=== PATIENT | male | born 1985 | race African-American/Black ===

== ENCOUNTER 2018-10-09 01:25 | Emergency (ER) | payer MEDICAID ==
[~2018-10-09] VITALS: Ht 180.3 cm; Wt 70.0 kg
[2018-10-09] MEDS ORDERED: HYDROcodone/APAP 5/325 TABLET ONE (02:20)
[2018-10-09] MEDS ORDERED: HYDROcodone/APAP 5/325 TABLET PO ONE (02:30)
[2018-10-09 03:44] VITALS: BP 127/71
== END 2018-10-09 03:46 | disposition home or self-care (01) ==
LOC: ED 02:28
DX: L04.0 Acute lymphadenitis of face, head and neck (principal)
CPT/HCPCS: 76536; 99284

== ENCOUNTER 2018-10-28 02:25 | Emergency (ER) | payer MEDICAID ==
[~2018-10-28] VITALS: Ht 180.3 cm; Wt 69.0 kg
[2018-10-28] MEDS ORDERED: LIDOCAINE-MPF 1%, 2ML ONE (02:42)
--- NOTE | 2018-10-28 02:54 | NUR ---
bib by ashleigh for 2 in lac to right palm of hand, pt cut hand on knife while doing dishes at midnight today, no active bleeding noted. monitors applied, siderails up x2, call light within reach.
[2018-10-28] MEDS ORDERED: LIDOCAINE-MPF 1%, 2ML INFIL ONE (03:00)
--- NOTE | 2018-10-28 03:08 | NUR ---
feed in worker at pt's bedside for right hand wound irrigation
[2018-10-28] MEDS ORDERED: ACETAMINOPHEN 325 MG TABLET ONE (03:10)
--- NOTE | 2018-10-28 03:15 | NUR ---
pt medicated per dec, heating and cooling technician at bedside
[2018-10-28] MEDS ORDERED: LIDOCAINE-MPF 1%, 5ML ONE (03:20)
[2018-10-28] MEDS ORDERED: BACITRACIN ZINC OINT 500U/GM, 0.9 GM ONE (03:27)
[2018-10-28] MEDS ORDERED: ACETAMINOPHEN 325 MG TABLET PO ONE (03:30)
[2018-10-28 03:36] VITALS: BP 101/54
== END 2018-10-28 03:49 | disposition home or self-care (01) ==
LOC: ED 02:50
DX: S61.411A Laceration without foreign body of right hand, initial encounter (principal); J45.909 Unspecified asthma, uncomplicated; Z72.9 Problem related to lifestyle, unspecified; W26.0XXA Contact with knife, initial encounter; Y93.89 Activity, other specified; Y92.090 Kitchen in other non-institutional residence as the place of occurrence of the external cause; Y99.8 Other external cause status
CPT/HCPCS: 12031; 12032; 12041; 99284

== ENCOUNTER 2019-06-28 16:25 | Inpatient (IN) | payer MEDICAID, OTHER ==
[~2019-06-28] VITALS: Ht 180.3 cm; Wt 76.8 kg
--- NOTE | 2019-06-28 16:37 | NUR ---
PATIENT PRESENTS TO ED TODAY FOR CHILLS AND BACK PAIN AFTER SHOWER TODAY. HX SICKLE CELL ANEMIA. FRIEND AT BEDSIDE, MD AT BEDSIDE, AWAITING ORDERS, CALL LIGHT WITHIN REACH.
[2019-06-28] MEDS ORDERED: FOLI20CA PO (16:41)
[2019-06-28] MEDS ORDERED: SODIUM CHLORIDE 0.9% 1,000ML IVBOLUS ONE (17:00)
[2019-06-28] MEDS ORDERED: ONDANSETRON 2MG/ML, 2ML IVPush ONE (17:00)
[2019-06-28] MEDS ORDERED: SODIUM CHLORIDE FLUSH 10ML SYR IVF ONE (17:00)
[2019-06-28] MEDS ORDERED: ONDANSETRON 2MG/ML, 2ML ONE (17:11)
[2019-06-28] MEDS ORDERED: HYDROmorphone 1 MG/ML, 1ML VIAL ONE (17:11)
[2019-06-28] MEDS: HYDROmorphone 2 MG/ML, 1ML IVPush PRN ×3 (17:13→23:38)
[2019-06-28 17:18] LABS: ALANINE AMINOTRANSFERASE 21 U/L (12-78); ALBUMIN 3.8 g/dL (3.4-5.0); ANION GAP 6 mmol/L (5-15); CALCIUM 8.1 mg/dL (8.5-10.1); CHLORIDE 110 mmol/L (98-107); CREATININE 0.97 mg/dL (0.7-1.3)
--- NOTE | 2019-06-28 17:18 | NUR ---
PATIENT 84%-90% RA POST PAIN MEDICATION, SUPPLEMENTAL O2 APPLIED, NOW 93% 2L NC. PATIENT SITTING IN GURNEY WATCHING TV, AWAITING RESULTS.
[2019-06-28 17:20] LABS: ALKALINE PHOSPHATASE 90 U/L (45-117); BILIRUBIN,TOTAL 4.7 mg/dL (0.2-1.0); TOTAL PROTEIN 7.2 g/dL (6.4-8.2)
[2019-06-28 17:24] LABS: MEAN CORPUSCULAR HEMOGLOBIN 37.3 pg (27.5-34.5); MEAN CORPUSCULAR HGB CONC 33.7 g/dL (33.2-36.2); MEAN CORPUSCULAR VOLUME 110.8 fL (81-97); MEAN PLATELET VOLUME 7.8 fL (7.4-10.4); PLATELET COUNT 499 x10^3/uL (130-400); RED BLOOD COUNT 2.37 x10^6/uL (4.38-5.82); RED CELL DISTRIBUTION WIDTH 22.1 % (9.4-14.8)
[2019-06-28 17:34] LABS: MICROSCOPIC AUTO
[2019-06-28 17:35] LABS: CULTURE INDICATED? YES
[2019-06-28 17:44] LABS: MD YES
[2019-06-28 17:46] LABS: BAND#(MANUAL) 1.01 x10^3/uL; BANDS%(MANUAL) 4 % (0-7); EOS% (MANUAL) 2 % (1-7); LYMPH#(MANUAL) 2.27 x10^3/uL (1-3.4); LYMPHS% (MANUAL) 9 % (22-44); MONOS#(MANUAL) 0.25 x10^3/uL (0.3-2.7); MONOS% (MANUAL) 1 % (2-9); MYELOCYTES# (MANUAL) 0.25 x10^3/uL (0-0); MYELOCYTES% (MANUAL) 1 % (0-0); NRBC % (MANUAL) 1 % (0-1); SEG#(MANUAL) 20.92 x10^3/uL (1.8-6.8); SEGS% (MANUAL) 83 % (42-75)
[2019-06-28 17:52] LABS: ANISOCYTOSIS 2+; SICKLE CELLS 2+
[2019-06-28 17:53] LABS: OVALOCYTES 1+; POLYCHROMASIA 2+; SPHEROCYTES 1+
[2019-06-28 17:54] LABS: TARGET CELLS 1+
[2019-06-28 17:56] LABS: <PLATELET ESTIMATE> INCREASED
[2019-06-28 17:57] LABS: LARGE PLATELETS 1+
--- NOTE | 2019-06-28 18:10 | NUR ---
IV INFILTRATED, NEW IV ESTABLISHED, IVF CONTINUED. VS UPDATED IN CHART, AWAITING LAB RESULTS. PATIENT SITTING IN [facility] WATCHING TV, NADN.
[2019-06-28] MEDS ORDERED: NALOXONE 1 MG/ML, 2ML ONE (18:31)
[2019-06-28 18:45] LABS: ABSOLUTE RETICS # 0.395 x10^6/uL (0.5-1.5); RETICULOCYTE COUNT % 16.56 % (0.5-1.5)
[2019-06-28 18:46] LABS: RED BLOOD COUNT 2.37 x10^6/uL (4.38-5.82)
--- NOTE | 2019-06-28 18:56 | NUR ---
NEW ORDERS FOR ADMIT, AWAITING BED ASSIGNMENT, REPORT TO LUIS DELAROSA. PATIENT LAYING IN GURNEY, A+OX4,RESP EVEN/UNLABORED.
[2019-06-28] MEDS ORDERED: ONDANSETRON 2MG/ML, 2ML IVPush PRN (19:00)
[2019-06-28] MEDS ORDERED: OXYcodone IR 5MG TABLET PO PRN (19:00)
--- NOTE | 2019-06-28 19:24 | NUR ---
TASK RN: REPORT TO LUIS KEITH. FLOOR READY FOR PT. TRANSPORT.
[2019-06-28] MEDS: SODIUM CHLORIDE 0.9% 1,000 ML IV SCH (20:50)
[2019-06-28] MEDS: ENOXAPARIN 40 MG/0.4 ML SQ SCH (20:50)
[2019-06-28] MEDS: PIPERACILLIN/TAZO/PMX 3.375GM 50 ML IV SCH (20:50)
[2019-06-29] MEDS: PIPERACILLIN/TAZO/PMX 3.375GM 50 ML IV SCH ×4 (02:21→22:17)
[2019-06-29] MEDS: SODIUM CHLORIDE 0.9% 1,000 ML IV SCH ×3 (02:22→22:15)
[2019-06-29] MEDS: HYDROmorphone 2 MG/ML, 1ML IVPush PRN ×4 (04:39→19:13)
[2019-06-29 05:17] LABS: MEAN CORPUSCULAR HEMOGLOBIN 36.6 pg (27.5-34.5); MEAN CORPUSCULAR HGB CONC 33.2 g/dL (33.2-36.2); MEAN CORPUSCULAR VOLUME 110.3 fL (81-97); MEAN PLATELET VOLUME 7.8 fL (7.4-10.4); PLATELET COUNT 435 x10^3/uL (130-400); RED BLOOD COUNT 2.15 x10^6/uL (4.38-5.82); RED CELL DISTRIBUTION WIDTH 20.9 % (9.4-14.8)
[2019-06-29 05:23] LABS: ALBUMIN 3.4 g/dL (3.4-5.0); CALCIUM 7.6 mg/dL (8.5-10.1); CHLORIDE 109 mmol/L (98-107)
[2019-06-29 05:24] VITALS: BP 115/61
[2019-06-29 05:29] LABS: ALANINE AMINOTRANSFERASE 26 U/L (12-78); ALKALINE PHOSPHATASE 85 U/L (45-117); ANION GAP 6 mmol/L (5-15); BILIRUBIN,TOTAL 4.2 mg/dL (0.2-1.0); CREATININE 1.03 mg/dL (0.7-1.3); TOTAL PROTEIN 6.2 g/dL (6.4-8.2)
[2019-06-29] MEDS ORDERED: ACETAMINOPHEN 325 MG TABLET PO PRN (05:30)
[2019-06-29 05:49] LABS: MD YES
[2019-06-29 05:53] LABS: BAND#(MANUAL) 9.07 x10^3/uL; BANDS%(MANUAL) 21 % (0-7); EOS% (MANUAL) 3 % (1-7); LYMPH#(MANUAL) 3.02 x10^3/uL (1-3.4); LYMPHS% (MANUAL) 7 % (22-44); MONOS#(MANUAL) 0.86 x10^3/uL (0.3-2.7); MONOS% (MANUAL) 2 % (2-9); NRBC % (MANUAL) 12 % (0-1); SEG#(MANUAL) 28.94 x10^3/uL (1.8-6.8); SEGS% (MANUAL) 67 % (42-75)
[2019-06-29 05:54] LABS: <PLATELET ESTIMATE> INCREASED; ANISOCYTOSIS 2+; OVALOCYTES 1+; POLYCHROMASIA 2+; SICKLE CELLS 2+; SPHEROCYTES 1+; TARGET CELLS 1+
[2019-06-29 06:01] LABS: GIANT PLATELETS 1+; LARGE PLATELETS 1+
[2019-06-29 06:21] VITALS: BP 113/67
[2019-06-29] MEDS ORDERED: IBUPROFEN 200 MG TABLET PO PRN (07:00)
[2019-06-29] MEDS: IBUPROFEN 200 MG TABLET PO PRN (07:11)
[2019-06-29] MEDS: FOLIC ACID 1 MG TABLET PO SCH (08:08)
[2019-06-29] MEDS: ACETAMINOPHEN 325 MG TABLET PO SCH ×3 (08:08→22:15)
[2019-06-29] MEDS ORDERED: FOLIC ACID PO SCH (09:00)
[2019-06-29] MEDS: OXYcodone IR 5MG TABLET PO PRN ×3 (10:37→22:15)
[2019-06-29 13:45] VITALS: BP 95/55
[2019-06-29 19:23] VITALS: BP_SYST 94; BP_DIAS 33; BP_DIAS 53
[2019-06-29] MEDS: ENOXAPARIN 40 MG/0.4 ML SQ SCH (22:15)
[2019-06-30] VITALS (8 sets, daily range): BP systolic 97–115; BP diastolic 52–69
[2019-06-30] MEDS: ACETAMINOPHEN 325 MG TABLET PO SCH ×4 (01:31→19:25)
[2019-06-30] MEDS: HYDROmorphone 2 MG/ML, 1ML IVPush PRN ×5 (01:31→22:48)
[2019-06-30] MEDS: PIPERACILLIN/TAZO/PMX 3.375GM 50 ML IV SCH ×4 (01:32→20:08)
[2019-06-30 06:29] LABS: ANION GAP 7 mmol/L (5-15); CALCIUM 8.1 mg/dL (8.5-10.1); CHLORIDE 109 mmol/L (98-107)
[2019-06-30 06:34] LABS: % IRON SATURATION 15 % (20-55); CREATININE 0.92 mg/dL (0.7-1.3); IRON LEVEL 26 mcg/dL (65-175); TOTAL IRON BINDING CAPACITY 172 mcg/dL (250-450)
[2019-06-30 07:41] LABS: MEAN CORPUSCULAR HEMOGLOBIN 37.5 pg (27.5-34.5); MEAN CORPUSCULAR HGB CONC 33.8 g/dL (33.2-36.2); MEAN PLATELET VOLUME 8.2 fL (7.4-10.4); PLATELET COUNT 371 x10^3/uL (130-400); RED BLOOD COUNT 1.61 x10^6/uL (4.38-5.82); RED CELL DISTRIBUTION WIDTH 20.9 % (9.4-14.8)
[2019-06-30 07:43] LABS: MD YES
[2019-06-30 07:45] LABS: ANISOCYTOSIS 2+; BAND#(MANUAL) 0.23 x10^3/uL; BANDS%(MANUAL) 1 % (0-7); EOS#(MANUAL) 0.68 x10^3/uL (0.0-0.4); EOS% (MANUAL) 3 % (1-7); LYMPH#(MANUAL) 2.74 x10^3/uL (1-3.4); LYMPHS% (MANUAL) 12 % (22-44); MONOS#(MANUAL) 0.68 x10^3/uL (0.3-2.7); MONOS% (MANUAL) 3 % (2-9); NRBC % (MANUAL) 1 % (0-1); SEG#(MANUAL) 18.47 x10^3/uL (1.8-6.8); SEGS% (MANUAL) 81 % (42-75)
[2019-06-30 07:46] LABS: <PLATELET ESTIMATE> ADEQUATE; OVALOCYTES 1+; POLYCHROMASIA 2+; SICKLE CELLS 2+; SPHEROCYTES 1+; TARGET CELLS 1+
[2019-06-30 07:47] LABS: <PLT MORPHOLOGY> NORMAL PLT MORPH
[2019-06-30] MEDS: FOLIC ACID 1 MG TABLET PO SCH (08:03)
[2019-06-30] MEDS: OXYcodone IR 5MG TABLET PO PRN ×2 (11:51→17:47)
[2019-06-30] MEDS: SODIUM CHLORIDE 0.9% 1,000 ML IV SCH (13:37)
[2019-06-30] MEDS: CALCIUM/VITAMIN D3 250-125 TABLET PO SCH (20:08)
[2019-06-30] MEDS: ENOXAPARIN 40 MG/0.4 ML SQ SCH (20:08)
[2019-06-30] MEDS: IBUPROFEN 200 MG TABLET PO PRN (20:08)
[2019-06-30] MEDS: NICOTINE 14MG/24 HR PATCH.TD24 TD SCH (21:58)
[2019-07-01] VITALS (7 sets, daily range): BP systolic 95–122; BP diastolic 65–79
[2019-07-01] MEDS: SODIUM CHLORIDE 0.9% 1,000 ML IV SCH ×2 (01:23→16:49)
[2019-07-01] MEDS: PIPERACILLIN/TAZO/PMX 3.375GM 50 ML IV SCH ×4 (01:23→20:34)
[2019-07-01] MEDS: ACETAMINOPHEN 325 MG TABLET PO SCH ×4 (01:23→20:34)
[2019-07-01 06:46] LABS: MEAN CORPUSCULAR HEMOGLOBIN 35.8 pg (27.5-34.5); MEAN CORPUSCULAR HGB CONC 33.5 g/dL (33.2-36.2); MEAN CORPUSCULAR VOLUME 106.9 fL (81-97); MEAN PLATELET VOLUME 8.1 fL (7.4-10.4); PLATELET COUNT 350 x10^3/uL (130-400); RED BLOOD COUNT 1.92 x10^6/uL (4.38-5.82); RED CELL DISTRIBUTION WIDTH 20.8 % (9.4-14.8)
[2019-07-01] MEDS: CALCIUM/VITAMIN D3 250-125 TABLET PO SCH ×2 (07:51→20:34)
[2019-07-01] MEDS: FOLIC ACID 1 MG TABLET PO SCH (07:51)
[2019-07-01 08:23] LABS: MD YES
[2019-07-01 08:24] LABS: EOS#(MANUAL) 1.51 x10^3/uL (0.0-0.4); EOS% (MANUAL) 11 % (1-7)
[2019-07-01 08:25] LABS: ANISOCYTOSIS 2+; LYMPH#(MANUAL) 2.74 x10^3/uL (1-3.4); LYMPHS% (MANUAL) 20 % (22-44); MONOS#(MANUAL) 0.69 x10^3/uL (0.3-2.7); MONOS% (MANUAL) 5 % (2-9); SEG#(MANUAL) 8.77 x10^3/uL (1.8-6.8); SEGS% (MANUAL) 64 % (42-75)
[2019-07-01 08:26] LABS: OVALOCYTES 1+; POLYCHROMASIA 2+; SICKLE CELLS 2+; SPHEROCYTES 1+; TARGET CELLS 1+
[2019-07-01 08:27] LABS: <PLATELET ESTIMATE> ADEQUATE; <PLT MORPHOLOGY> NORMAL PLT MORPH
[2019-07-01] MEDS: HYDROmorphone 2 MG/ML, 1ML IVPush PRN ×5 (08:28→23:58)
[2019-07-01] MEDS: OXYcodone IR 5MG TABLET PO PRN ×2 (09:56→15:49)
[2019-07-01] MEDS: IBUPROFEN 200 MG TABLET PO PRN (19:08)
[2019-07-01] MEDS: ENOXAPARIN 40 MG/0.4 ML SQ SCH (20:35)
[2019-07-01] MEDS: NICOTINE 14MG/24 HR PATCH.TD24 TD SCH (20:35)
[2019-07-02 00:54] VITALS: BP 108/73
[2019-07-02] MEDS: ACETAMINOPHEN 325 MG TABLET PO SCH ×4 (01:36→22:25)
[2019-07-02] MEDS: PIPERACILLIN/TAZO/PMX 3.375GM 50 ML IV SCH ×4 (02:45→22:24)
[2019-07-02] MEDS: SODIUM CHLORIDE 0.9% 1,000 ML IV SCH ×3 (02:45→23:14)
[2019-07-02] MEDS: OXYcodone IR 5MG TABLET PO PRN ×4 (03:33→23:14)
[2019-07-02 05:01] LABS: MEAN CORPUSCULAR HEMOGLOBIN 35.1 pg (27.5-34.5); MEAN CORPUSCULAR HGB CONC 33.8 g/dL (33.2-36.2); MEAN CORPUSCULAR VOLUME 103.9 fL (81-97); PLATELET COUNT 450 x10^3/uL (130-400); RED BLOOD COUNT 2.24 x10^6/uL (4.38-5.82); RED CELL DISTRIBUTION WIDTH 20.4 % (9.4-14.8)
[2019-07-02 05:44] LABS: MD YES
[2019-07-02 05:46] LABS: BASOS#(MANUAL) 0.14 x10^3/uL (0-0.1); BASOS% (MANUAL) 1 % (0-1); EOS#(MANUAL) 1.63 x10^3/uL (0.0-0.4); EOS% (MANUAL) 12 % (1-7); LYMPH#(MANUAL) 2.72 x10^3/uL (1-3.4); LYMPHS% (MANUAL) 20 % (22-44); MONOS#(MANUAL) 1.22 x10^3/uL (0.3-2.7); MONOS% (MANUAL) 9 % (2-9); NRBC % (MANUAL) 8 % (0-1); SEG#(MANUAL) 7.89 x10^3/uL (1.8-6.8); SEGS% (MANUAL) 58 % (42-75)
[2019-07-02 05:47] LABS: ANISOCYTOSIS 2+; POLYCHROMASIA 2+; TARGET CELLS 1+
[2019-07-02 05:49] LABS: OVALOCYTES 1+; SICKLE CELLS 2+
[2019-07-02 05:50] LABS: <PLATELET ESTIMATE> INCREASED; <PLT MORPHOLOGY> NORMAL PLT MORPH; SPHEROCYTES 1+
[2019-07-02 08:52] VITALS: BP 123/77
[2019-07-02] MEDS: CALCIUM/VITAMIN D3 250-125 TABLET PO SCH ×2 (10:25→20:48)
[2019-07-02] MEDS: FOLIC ACID 1 MG TABLET PO SCH (10:26)
[2019-07-02] MEDS: FERROUS SULFATE 325 MG TABLET PO SCH (10:26)
[2019-07-02 13:50] VITALS: BP 124/81
[2019-07-02 20:28] VITALS: BP 123/72
[2019-07-02] MEDS: NICOTINE 14MG/24 HR PATCH.TD24 TD SCH (20:48)
[2019-07-02] MEDS: ENOXAPARIN 40 MG/0.4 ML SQ SCH (20:48)
[2019-07-03 00:33] VITALS: BP 129/80
[2019-07-03] MEDS: OXYcodone IR 5MG TABLET PO PRN ×5 (03:28→20:57)
[2019-07-03] MEDS: ACETAMINOPHEN 325 MG TABLET PO SCH ×4 (04:32→22:30)
[2019-07-03] MEDS: PIPERACILLIN/TAZO/PMX 3.375GM 50 ML IV SCH ×2 (04:32→10:15)
[2019-07-03 05:43] LABS: MEAN CORPUSCULAR HEMOGLOBIN 35.1 pg (27.5-34.5); MEAN CORPUSCULAR HGB CONC 33.9 g/dL (33.2-36.2); MEAN CORPUSCULAR VOLUME 103.6 fL (81-97); MEAN PLATELET VOLUME 8.1 fL (7.4-10.4); PLATELET COUNT 488 x10^3/uL (130-400); RED BLOOD COUNT 2.35 x10^6/uL (4.38-5.82); RED CELL DISTRIBUTION WIDTH 21.6 % (9.4-14.8)
[2019-07-03 06:19] LABS: MD YES
[2019-07-03 06:22] LABS: <PLATELET ESTIMATE> INCREASED; ANISOCYTOSIS 2+; BASOS#(MANUAL) 0.29 x10^3/uL (0-0.1); BASOS% (MANUAL) 2 % (0-1); EOS#(MANUAL) 2.15 x10^3/uL (0.0-0.4); EOS% (MANUAL) 15 % (1-7); LYMPH#(MANUAL) 3.43 x10^3/uL (1-3.4); LYMPHS% (MANUAL) 24 % (22-44); MONOS% (MANUAL) 7 % (2-9); NRBC % (MANUAL) 6 % (0-1); OVALOCYTES 1+; POLYCHROMASIA 2+; SEG#(MANUAL) 7.44 x10^3/uL (1.8-6.8); SEGS% (MANUAL) 52 % (42-75); SICKLE CELLS 2+; SPHEROCYTES 1+; TARGET CELLS 1+
[2019-07-03 06:23] LABS: <PLT MORPHOLOGY> NORMAL PLT MORPH
[2019-07-03 08:15] VITALS: BP 129/73
[2019-07-03] MEDS: CALCIUM/VITAMIN D3 250-125 TABLET PO SCH ×2 (08:28→20:57)
[2019-07-03] MEDS: FOLIC ACID 1 MG TABLET PO SCH (08:28)
[2019-07-03] MEDS: SODIUM CHLORIDE 0.9% 1,000 ML IV SCH ×2 (08:28→18:17)
[2019-07-03] MEDS: CEFTRIAXONE PMX 2GM/50ML 50 ML IV SCH (12:12)
[2019-07-03 15:10] VITALS: BP 131/77
[2019-07-03] MEDS: ENOXAPARIN 40 MG/0.4 ML SQ SCH (20:57)
[2019-07-03] MEDS: NICOTINE 14MG/24 HR PATCH.TD24 TD SCH (20:57)
[2019-07-03 21:26] VITALS: BP 128/78
[2019-07-04] MEDS: OXYcodone IR 5MG TABLET PO PRN ×4 (02:58→21:22)
[2019-07-04 03:00] VITALS: BP 132/80
[2019-07-04] MEDS: SODIUM CHLORIDE 0.9% 1,000 ML IV SCH ×2 (03:34→15:05)
[2019-07-04] MEDS: ACETAMINOPHEN 325 MG TABLET PO SCH ×4 (04:28→22:38)
[2019-07-04 08:29] LABS: MD YES; MEAN CORPUSCULAR HEMOGLOBIN 34.1 pg (27.5-34.5); MEAN CORPUSCULAR VOLUME 103.1 fL (81-97); MEAN PLATELET VOLUME 7.6 fL (7.4-10.4); PLATELET COUNT 468 x10^3/uL (130-400); RED BLOOD COUNT 2.27 x10^6/uL (4.38-5.82); RED CELL DISTRIBUTION WIDTH 22.1 % (9.4-14.8)
[2019-07-04 08:33] LABS: ANISOCYTOSIS 2+; BAND#(MANUAL) 0.23 x10^3/uL; BANDS%(MANUAL) 2 % (0-7); BASOS#(MANUAL) 0.35 x10^3/uL (0-0.1); BASOS% (MANUAL) 3 % (0-1); EOS#(MANUAL) 1.84 x10^3/uL (0.0-0.4); EOS% (MANUAL) 16 % (1-7); LYMPH#(MANUAL) 2.42 x10^3/uL (1-3.4); LYMPHS% (MANUAL) 21 % (22-44); MONOS#(MANUAL) 0.81 x10^3/uL (0.3-2.7); MONOS% (MANUAL) 7 % (2-9); NRBC % (MANUAL) 2 % (0-1); OVALOCYTES 1+; POLYCHROMASIA 2+; SEG#(MANUAL) 5.87 x10^3/uL (1.8-6.8); SEGS% (MANUAL) 51 % (42-75)
[2019-07-04 08:34] LABS: <PLATELET ESTIMATE> INCREASED; <PLT MORPHOLOGY> NORMAL PLT MORPH; SICKLE CELLS 2+; TARGET CELLS 1+
[2019-07-04] MEDS: CALCIUM/VITAMIN D3 250-125 TABLET PO SCH ×2 (09:34→21:22)
[2019-07-04] MEDS: FOLIC ACID 1 MG TABLET PO SCH (09:34)
[2019-07-04 09:40] VITALS: BP 130/80
[2019-07-04] MEDS: CEFTRIAXONE PMX 2GM/50ML 50 ML IV SCH (11:33)
[2019-07-04] MEDS: FERROUS SULFATE 325 MG TABLET PO SCH (11:33)
[2019-07-04 14:28] VITALS: BP 145/75
[2019-07-04 21:19] VITALS: BP 137/79
[2019-07-04] MEDS: NICOTINE 14MG/24 HR PATCH.TD24 TD SCH (21:23)
[2019-07-04] MEDS: ENOXAPARIN 40 MG/0.4 ML SQ SCH (21:23)
[2019-07-05 02:22] VITALS: BP 123/67
[2019-07-05] MEDS: OXYcodone IR 5MG TABLET PO PRN ×2 (02:25→21:16)
[2019-07-05] MEDS: ACETAMINOPHEN 325 MG TABLET PO SCH ×4 (04:21→22:52)
[2019-07-05] MEDS: SODIUM CHLORIDE 0.9% 1,000 ML IV SCH ×3 (04:24→21:28)
[2019-07-05 05:33] LABS: MEAN CORPUSCULAR HGB CONC 33.4 g/dL (33.2-36.2); MEAN CORPUSCULAR VOLUME 104.8 fL (81-97); MEAN PLATELET VOLUME 8.1 fL (7.4-10.4); PLATELET COUNT 483 x10^3/uL (130-400); RED CELL DISTRIBUTION WIDTH 20.8 % (9.4-14.8)
[2019-07-05 06:04] LABS: MD YES
[2019-07-05 06:06] LABS: ANISOCYTOSIS 2+; BASOS#(MANUAL) 0.14 x10^3/uL (0-0.1); BASOS% (MANUAL) 1 % (0-1); EOS#(MANUAL) 1.53 x10^3/uL (0.0-0.4); EOS% (MANUAL) 11 % (1-7); LYMPH#(MANUAL) 3.34 x10^3/uL (1-3.4); LYMPHS% (MANUAL) 24 % (22-44); METAMYELOCYTES# (MANUAL) 0.14 x10^3/uL (0-0); METAMYELOCYTES% (MANUAL) 1 % (0-1); MONOS#(MANUAL) 1.67 x10^3/uL (0.3-2.7); MONOS% (MANUAL) 12 % (2-9); NRBC % (MANUAL) 4 % (0-1); POLYCHROMASIA 2+; SEG#(MANUAL) 7.09 x10^3/uL (1.8-6.8); SEGS% (MANUAL) 51 % (42-75)
[2019-07-05 06:07] LABS: <PLATELET ESTIMATE> INCREASED; OVALOCYTES 1+; SICKLE CELLS 2+; TARGET CELLS 1+
[2019-07-05 06:10] LABS: LARGE PLATELETS 1+
[2019-07-05 06:12] LABS: SPHEROCYTES 1+
[2019-07-05 08:00] VITALS: BP 123/67
[2019-07-05] MEDS: CALCIUM/VITAMIN D3 250-125 TABLET PO SCH ×2 (09:29→21:16)
[2019-07-05] MEDS: FOLIC ACID 1 MG TABLET PO SCH (09:29)
[2019-07-05] MEDS: CEFTRIAXONE PMX 2GM/50ML 50 ML IV SCH (12:06)
[2019-07-05 14:26] VITALS: BP 137/79
[2019-07-05] MEDS: ENOXAPARIN 40 MG/0.4 ML SQ SCH (20:30)
[2019-07-05] MEDS: NICOTINE 14MG/24 HR PATCH.TD24 TD SCH (21:16)
[2019-07-05 21:25] VITALS: BP 145/87
[2019-07-06 01:02] VITALS: BP 139/82
[2019-07-06] MEDS: ACETAMINOPHEN 325 MG TABLET PO SCH (04:16)
[2019-07-06 05:26] LABS: MEAN CORPUSCULAR HEMOGLOBIN 34.5 pg (27.5-34.5); MEAN CORPUSCULAR HGB CONC 33.3 g/dL (33.2-36.2); MEAN CORPUSCULAR VOLUME 103.7 fL (81-97); MEAN PLATELET VOLUME 8.1 fL (7.4-10.4); PLATELET COUNT 583 x10^3/uL (130-400); RED BLOOD COUNT 2.49 x10^6/uL (4.38-5.82); RED CELL DISTRIBUTION WIDTH 21.2 % (9.4-14.8)
[2019-07-06 05:34] LABS: ANION GAP 5 mmol/L (5-15); CALCIUM 8.9 mg/dL (8.5-10.1); CHLORIDE 108 mmol/L (98-107); CREATININE 0.71 mg/dL (0.7-1.3)
[2019-07-06 05:55] LABS: MD YES
[2019-07-06 05:57] LABS: EOS#(MANUAL) 1.15 x10^3/uL (0.0-0.4); EOS% (MANUAL) 9 % (1-7); LYMPH#(MANUAL) 2.82 x10^3/uL (1-3.4); LYMPHS% (MANUAL) 22 % (22-44); MONOS#(MANUAL) 1.02 x10^3/uL (0.3-2.7); MONOS% (MANUAL) 8 % (2-9); NRBC % (MANUAL) 4 % (0-1); SEG#(MANUAL) 7.81 x10^3/uL (1.8-6.8); SEGS% (MANUAL) 61 % (42-75)
[2019-07-06 05:58] LABS: ANISOCYTOSIS 2+; OVALOCYTES 1+; POLYCHROMASIA 2+; SICKLE CELLS 2+; TARGET CELLS 1+
[2019-07-06 06:00] LABS: <PLATELET ESTIMATE> INCREASED; <PLT MORPHOLOGY> NORMAL PLT MORPH
[2019-07-06 08:00] VITALS: BP 145/87
[2019-07-06] MEDS: SODIUM CHLORIDE 0.9% 1,000 ML IV SCH (08:12)
[2019-07-06] MEDS ORDERED: NICO-486 TD (08:53)
[2019-07-06] MEDS ORDERED: FERR-51 PO (08:53)
[2019-07-06] MEDS ORDERED: CALC1TAB68 PO (08:53)
[2019-07-06] MEDS ORDERED: ACET325T26 PO (08:53)
[2019-07-06] MEDS ORDERED: CEFD300C37 PO (08:53)
[2019-07-06] MEDS ORDERED: CEFDINIR 300 MG CAPSULE PO SCH (09:00)
[2019-07-06] MEDS: FOLIC ACID 1 MG TABLET PO SCH (09:44)
[2019-07-06] MEDS: CALCIUM/VITAMIN D3 250-125 TABLET PO SCH (09:44)
[2019-07-06 10:21] VITALS: BP 145/87
== END 2019-07-06 11:35 | disposition home or self-care (01) | DRG 871 ==
LOC: ED 18:07 → EDIP 18:41 → 3N 19:56 → DCLOUNGE 07-06 11:16
PROVIDERS: ADMIT Family Medicine; ATTEND Family Medicine
PROC: 30233N1 Transfusion of Nonautologous Red Blood Cells into Peripheral Vein, Percutaneous Approach (ICD-10-PCS; principal; 2019-06-30)
DX: A41.51 Sepsis due to Escherichia coli [E. coli] (principal); D57.00 Hb-SS disease with crisis, unspecified; E86.0 Dehydration; D50.9 Iron deficiency anemia, unspecified; D53.9 Nutritional anemia, unspecified; E83.51 Hypocalcemia; F12.90 Cannabis use, unspecified, uncomplicated; F14.10 Cocaine abuse, uncomplicated; F17.210 Nicotine dependence, cigarettes, uncomplicated; G47.00 Insomnia, unspecified; Z88.5 Allergy status to narcotic agent; J45.909 Unspecified asthma, uncomplicated; K82.9 Disease of gallbladder, unspecified
CPT/HCPCS: 36415; 36430; 36600; 71045; 80048; 80053; 81001; 82274; 82330; 82607; 82803; 83540; 83550; 83605; 85025; 85045; 86850; 86900; 86902; 86923; 87040; 87077; 87086; 87186; 99285; G0378; J0696; J1170; J1650; J2405; J2543; J7030; P9016

== ENCOUNTER 2020-04-14 17:49 | Inpatient (IN) | payer MEDICAID ==
[~2020-04-14] VITALS: Ht 180.3 cm; Wt 71.9 kg
[~2020-04-14 17:49] MED LIST: ACET325T26 PO; CALC1TAB68 PO; CEFD300C37 PO; FERR-51 PO; FOLI20CA PO; NICO-486 TD
--- NOTE | 2020-04-14 18:15 | NUR ---
Pt states pain radiating from Left knee to Left hip since friday. Pt states pain is 10/10
[2020-04-14] MEDS ORDERED: SODIUM CHLORIDE 0.9% 1,000ML IVBOLUS ONE ×2 (19:00→20:00)
[2020-04-14] MEDS ORDERED: SODIUM CHLORIDE FLUSH 10ML SYR IVF ONE (19:00)
[2020-04-14] MEDS ORDERED: OXYcodone/APAP 7.5/325MG TABLET PO ONE (19:00)
[2020-04-14] MEDS ORDERED: OXYcodone/APAP 7.5/325MG TABLET ONE (19:02)
[2020-04-14 19:15] LABS: ALANINE AMINOTRANSFERASE 21 U/L (12-78); ALBUMIN 3.8 g/dL (3.4-5.0); ANION GAP 7 mmol/L (5-15); CALCIUM 8.2 mg/dL (8.5-10.1); CHLORIDE 111 mmol/L (98-107)
[2020-04-14 19:17] LABS: ALKALINE PHOSPHATASE 81 U/L (45-117); BILIRUBIN,TOTAL 3.7 mg/dL (0.2-1.0); CREATININE 0.81 mg/dL (0.7-1.3); TOTAL PROTEIN 6.8 g/dL (6.4-8.2)
[2020-04-14 19:23] LABS: MD YES; MEAN CORPUSCULAR HEMOGLOBIN 38.3 pg (27.5-34.5); MEAN CORPUSCULAR HGB CONC 34.4 g/dL (33.2-36.2); MEAN CORPUSCULAR VOLUME 111.2 fL (81-97); MEAN PLATELET VOLUME 7.6 fL (7.4-10.4); PLATELET COUNT 428 x10^3/uL (130-400); RED BLOOD COUNT 2.33 x10^6/uL (4.38-5.82); RED CELL DISTRIBUTION WIDTH 29.1 % (9.4-14.8)
[2020-04-14 19:47] LABS: EOS#(MANUAL) 2.31 x10^3/uL (0.0-0.4); EOS% (MANUAL) 14 % (1-7); LYMPH#(MANUAL) 3.47 x10^3/uL (1-3.4); LYMPHS% (MANUAL) 21 % (22-44); MONOS#(MANUAL) 0.33 x10^3/uL (0.3-2.7); MONOS% (MANUAL) 2 % (2-9); NRBC % (MANUAL) 12 % (0-1); SEGS% (MANUAL) 63 % (42-75)
[2020-04-14 19:49] LABS: ANISOCYTOSIS 2+; OVALOCYTES 1+; SPHEROCYTES 1+
[2020-04-14 19:50] LABS: POLYCHROMASIA 2+; SICKLE CELLS 1+; TARGET CELLS 1+
[2020-04-14 19:51] LABS: <PLATELET ESTIMATE> INCREASED; <PLT MORPHOLOGY> NORMAL PLT MORPH
[2020-04-14] MEDS ORDERED: HYDROmorphone 1 MG/ML, 1ML INJ IV ONE ×2 (20:00→21:00)
[2020-04-14 20:04] LABS: RED BLOOD COUNT 2.33 x10^6/uL (4.38-5.82)
[2020-04-14 20:05] LABS: ABSOLUTE RETICS # 0.42 x10^6/uL (0.5-1.5); RETICULOCYTE COUNT % 18.05 % (0.5-1.5)
[2020-04-14] MEDS ORDERED: HYDROmorphone 2 MG/ML, 1ML ONE (20:06)
--- NOTE | 2020-04-14 20:14 | NUR ---
Pt medicated for pain 2nd bolus infusing.
[2020-04-14 20:26] LABS: MICROSCOPIC NOT IND
--- NOTE | 2020-04-14 20:37 | NUR ---
Pt bothered by NC, provided with blow by O2 via NRB per request.
--- NOTE | 2020-04-14 20:52 | NUR ---
Report given to LUIS Matthews
--- NOTE | 2020-04-14 20:55 | NUR ---
REPORT RECEIVED FROM LUIS PEDRAZA. ASSUMED CARE OF PT.
[2020-04-14] MEDS ORDERED: ONDANSETRON 2MG/ML, 2ML IVPush ONE (21:00)
[2020-04-14] MEDS ORDERED: HYDROmorphone 1 MG/ML, 1ML INJ ONE (21:25)
[2020-04-14] MEDS ORDERED: ONDANSETRON 2MG/ML, 2ML ONE (21:26)
--- NOTE | 2020-04-14 21:30 | NUR ---
ADMITTING RAAD MCDERMOTT AT BEDSIDE FOR EVAL. PT CURRENTLY RESTING ON GURNEY EATING DINNER. SIGNIFICANT OTHER AT BEDSIDE. PT CHATTING PLEASANTLY AND LAUGHING WITH SET UP MECHANIC CROWN ASSEMBLY MACHINE AND S.O. AT BEDSIDE. NO ACUTE DISTRESS NOTED AT THIS TIME. PT ON CONT BP, CARDIAC AND O2 MONITORS. CALL LIGHT WITHIN REACH. WILL CONT TO MONITOR PT.
--- NOTE | 2020-04-14 21:51 | NUR ---
PT C/O CONT NAUSEA AND 9/10 PAIN. PT REMEDICATED ORDERED. PT ON CONT BP, CARDIAC AND SPO2 MONITORS. SIGNIFICANT OTHER AT BEDSIDE. CALL LIGHT WITHIN REACH. WILL CONT TO MONITOR PT.
--- NOTE | 2020-04-14 21:57 | NUR ---
REPORT TO LUIS LALA MED/SURG.
[2020-04-14] MEDS ORDERED: ACETAMINOPHEN 325 MG TABLET PO PRN (22:00)
[2020-04-14] MEDS ORDERED: BISACODYL 10 MG SUPP PR PRN (22:00)
[2020-04-14] MEDS ORDERED: KETOROLAC 30 MG/1 ML IV PRN (22:00)
[2020-04-14] MEDS ORDERED: POLYETHYLENE GLYCOL 17 GM PACKET PO PRN (22:00)
[2020-04-14] MEDS: SODIUM CHLORIDE 0.9% 1,000 ML IV SCH (22:00)
[2020-04-14 22:14] VITALS: BP 119/71
[2020-04-14] MEDS: NICOTINE 21 MG/24 HR PATCH.TD24 TD SCH (23:44)
[2020-04-15 01:16] VITALS: BP 126/78
[2020-04-15] MEDS: HYDROmorphone 2 MG/ML, 1ML IVPush PRN ×5 (01:27→18:02)
[2020-04-15] MEDS: ONDANSETRON ODT 4 MG PO PRN ×2 (01:27→09:00)
[2020-04-15 05:29] LABS: ALBUMIN 3.3 g/dL (3.4-5.0); ANION GAP 5 mmol/L (5-15); CALCIUM 7.8 mg/dL (8.5-10.1); CHLORIDE 112 mmol/L (98-107)
[2020-04-15 05:32] LABS: CREATININE 0.68 mg/dL (0.7-1.3)
[2020-04-15 05:33] LABS: ALANINE AMINOTRANSFERASE 19 U/L (12-78); ALKALINE PHOSPHATASE 64 U/L (45-117); TOTAL PROTEIN 6.2 g/dL (6.4-8.2)
[2020-04-15 06:32] LABS: MEAN CORPUSCULAR HEMOGLOBIN 37.8 pg (27.5-34.5); MEAN CORPUSCULAR HGB CONC 33.3 g/dL (33.2-36.2); MEAN CORPUSCULAR VOLUME 113.5 fL (81-97); MEAN PLATELET VOLUME 7.6 fL (7.4-10.4); PLATELET COUNT 419 x10^3/uL (130-400); RED BLOOD COUNT 2.16 x10^6/uL (4.38-5.82)
[2020-04-15 06:34] LABS: RED CELL DISTRIBUTION WIDTH 27.6 % (9.4-14.8)
[2020-04-15 06:35] LABS: MD YES
[2020-04-15 06:37] LABS: EOS#(MANUAL) 2.74 x10^3/uL (0.0-0.4); EOS% (MANUAL) 18 % (1-7); LYMPH#(MANUAL) 3.95 x10^3/uL (1-3.4); LYMPHS% (MANUAL) 26 % (22-44); MONOS#(MANUAL) 1.37 x10^3/uL (0.3-2.7); MONOS% (MANUAL) 9 % (2-9); NRBC % (MANUAL) 6 % (0-1); SEG#(MANUAL) 7.14 x10^3/uL (1.8-6.8); SEGS% (MANUAL) 47 % (42-75)
[2020-04-15 06:38] LABS: ANISOCYTOSIS 2+; POLYCHROMASIA 2+
[2020-04-15 06:39] LABS: OVALOCYTES 1+; SPHEROCYTES 1+
[2020-04-15 06:40] LABS: SICKLE CELLS 2+; TARGET CELLS 1+
[2020-04-15 06:41] LABS: <PLATELET ESTIMATE> INCREASED; <PLT MORPHOLOGY> NORMAL PLT MORPH
[2020-04-15 07:35] VITALS: BP 117/72
[2020-04-15] MEDS: SENNA/DOCUSATE TABLET PO SCH (08:42)
[2020-04-15] MEDS: SODIUM CHLORIDE 0.9% 1,000 ML IV SCH (08:42)
[2020-04-15 13:19] VITALS: BP 118/57
[2020-04-15] MEDS: NS + 20MEQ KCL 1,000 ML IV SCH (18:03)
[2020-04-15] MEDS: ENOXAPARIN 40 MG/0.4 ML SQ SCH (18:03)
[2020-04-15 21:38] VITALS: BP 109/68
[2020-04-15] MEDS: NICOTINE 21 MG/24 HR PATCH.TD24 TD SCH (22:28)
[2020-04-16] MEDS: HYDROmorphone 2 MG/ML, 1ML IVPush PRN ×5 (00:31→23:26)
[2020-04-16 00:34] VITALS: BP 107/46
[2020-04-16] MEDS: NS + 20MEQ KCL 1,000 ML IV SCH (04:25)
[2020-04-16 06:05] LABS: ALANINE AMINOTRANSFERASE 20 U/L (12-78); ALBUMIN 3.3 g/dL (3.4-5.0); ANION GAP 3 mmol/L (5-15); CALCIUM 7.8 mg/dL (8.5-10.1); CHLORIDE 111 mmol/L (98-107)
[2020-04-16 06:08] LABS: ALKALINE PHOSPHATASE 69 U/L (45-117); BILIRUBIN,TOTAL 2.6 mg/dL (0.2-1.0); CREATININE 0.86 mg/dL (0.7-1.3)
[2020-04-16 06:35] VITALS: BP 119/56
[2020-04-16 06:58] LABS: MEAN CORPUSCULAR HEMOGLOBIN 38.8 pg (27.5-34.5); MEAN CORPUSCULAR HGB CONC 34.5 g/dL (33.2-36.2); MEAN CORPUSCULAR VOLUME 112.7 fL (81-97); MEAN PLATELET VOLUME 7.5 fL (7.4-10.4); PLATELET COUNT 381 x10^3/uL (130-400); RED BLOOD COUNT 2.03 x10^6/uL (4.38-5.82)
[2020-04-16 07:02] LABS: RED CELL DISTRIBUTION WIDTH 25.3 % (9.4-14.8)
[2020-04-16 07:03] LABS: MD YES
[2020-04-16 07:05] LABS: ANISOCYTOSIS 2+; EOS#(MANUAL) 1.52 x10^3/uL (0.0-0.4); EOS% (MANUAL) 16 % (1-7); LYMPH#(MANUAL) 2.85 x10^3/uL (1-3.4); LYMPHS% (MANUAL) 30 % (22-44); MONOS#(MANUAL) 0.29 x10^3/uL (0.3-2.7); MONOS% (MANUAL) 3 % (2-9); NRBC % (MANUAL) 13 % (0-1); SEG#(MANUAL) 4.85 x10^3/uL (1.8-6.8); SEGS% (MANUAL) 51 % (42-75)
[2020-04-16 07:07] LABS: <PLATELET ESTIMATE> ADEQUATE; <PLT MORPHOLOGY> NORMAL PLT MORPH; OVALOCYTES 1+; POLYCHROMASIA 1+; SPHEROCYTES 1+; TARGET CELLS 1+; TEAR DROPS 2+
[2020-04-16] MEDS: SENNA/DOCUSATE TABLET PO SCH (08:40)
[2020-04-16] MEDS ORDERED: HYDROcodone/APAP 5/325 TABLET PO PRN (09:00)
[2020-04-16 13:47] VITALS: BP 112/70
[2020-04-16] MEDS: ENOXAPARIN 40 MG/0.4 ML SQ SCH (15:19)
[2020-04-16 19:44] VITALS: BP 131/66
[2020-04-16] MEDS: NICOTINE 21 MG/24 HR PATCH.TD24 TD SCH (21:15)
[2020-04-17] VITALS (9 sets, daily range): BP systolic 104–127; BP diastolic 54–76
[2020-04-17] MEDS: HYDROmorphone 2 MG/ML, 1ML IVPush PRN ×6 (05:10→23:30)
[2020-04-17 06:04] LABS: ALBUMIN 3.4 g/dL (3.4-5.0); CALCIUM 8.1 mg/dL (8.5-10.1)
[2020-04-17 06:10] LABS: ALANINE AMINOTRANSFERASE 19 U/L (12-78); ALKALINE PHOSPHATASE 65 U/L (45-117); BILIRUBIN,TOTAL 2.5 mg/dL (0.2-1.0); CREATININE 0.76 mg/dL (0.7-1.3); TOTAL PROTEIN 6.3 g/dL (6.4-8.2)
[2020-04-17 06:23] LABS: ANION GAP 9 mmol/L (5-15); CHLORIDE 109 mmol/L (98-107)
[2020-04-17 06:26] LABS: RED BLOOD COUNT 1.88 x10^6/uL (4.38-5.82)
[2020-04-17 06:27] LABS: MD YES; MEAN CORPUSCULAR HEMOGLOBIN 37.8 pg (27.5-34.5); MEAN CORPUSCULAR HGB CONC 34.8 g/dL (33.2-36.2); MEAN CORPUSCULAR VOLUME 108.4 fL (81-97); MEAN PLATELET VOLUME 7.6 fL (7.4-10.4); PLATELET COUNT 364 x10^3/uL (130-400); RED CELL DISTRIBUTION WIDTH 24.8 % (9.4-14.8)
[2020-04-17 06:29] LABS: <PLATELET ESTIMATE> ADEQUATE; <PLT MORPHOLOGY> NORMAL PLT MORPH; ANISOCYTOSIS 2+; BASOS#(MANUAL) 0.11 x10^3/uL (0-0.1); BASOS% (MANUAL) 1 % (0-1); EOS#(MANUAL) 1.46 x10^3/uL (0.0-0.4); EOS% (MANUAL) 13 % (1-7); LYMPH#(MANUAL) 1.79 x10^3/uL (1-3.4); LYMPHS% (MANUAL) 16 % (22-44); MONOS#(MANUAL) 0.67 x10^3/uL (0.3-2.7); MONOS% (MANUAL) 6 % (2-9); NRBC % (MANUAL) 3 % (0-1); POLYCHROMASIA 1+; SEG#(MANUAL) 7.17 x10^3/uL (1.8-6.8); SEGS% (MANUAL) 64 % (42-75); SICKLE CELLS 2+; TARGET CELLS 1+; TEAR DROPS 1+
[2020-04-17] MEDS: SENNA/DOCUSATE TABLET PO SCH (08:22)
[2020-04-17] MEDS: ENOXAPARIN 40 MG/0.4 ML SQ SCH (15:54)
[2020-04-17] MEDS: NICOTINE 21 MG/24 HR PATCH.TD24 TD SCH (21:10)
[2020-04-18 01:18] VITALS: BP 130/76
[2020-04-18] MEDS: HYDROmorphone 2 MG/ML, 1ML IVPush PRN ×5 (02:50→21:07)
[2020-04-18 05:27] LABS: ALBUMIN 3.5 g/dL (3.4-5.0); ANION GAP 6 mmol/L (5-15); CALCIUM 8.6 mg/dL (8.5-10.1); CHLORIDE 104 mmol/L (98-107)
[2020-04-18 05:32] LABS: ALANINE AMINOTRANSFERASE 24 U/L (12-78); ALKALINE PHOSPHATASE 80 U/L (45-117); TOTAL PROTEIN 6.8 g/dL (6.4-8.2)
[2020-04-18 05:59] LABS: MD YES; MEAN CORPUSCULAR HGB CONC 34.5 g/dL (33.2-36.2); MEAN CORPUSCULAR VOLUME 104.4 fL (81-97); MEAN PLATELET VOLUME 7.4 fL (7.4-10.4); PLATELET COUNT 433 x10^3/uL (130-400); RED BLOOD COUNT 2.25 x10^6/uL (4.38-5.82)
[2020-04-18 06:06] LABS: <PLATELET ESTIMATE> INCREASED; <PLT MORPHOLOGY> NORMAL PLT MORPH; ANISOCYTOSIS 2+; EOS% (MANUAL) 16 % (1-7); LYMPHS% (MANUAL) 19 % (22-44); MONOS% (MANUAL) 7 % (2-9); NRBC % (MANUAL) 1 % (0-1); POLYCHROMASIA 1+; SEGS% (MANUAL) 58 % (42-75); SICKLE CELLS 2+; TARGET CELLS 1+; TEAR DROPS 1+
[2020-04-18 06:09] LABS: HOWELL-JOLLY BODIES 1+
[2020-04-18 07:00] VITALS: BP 126/73
[2020-04-18] MEDS: SENNA/DOCUSATE TABLET PO SCH (08:26)
[2020-04-18 13:37] VITALS: BP 123/76
[2020-04-18] MEDS: ENOXAPARIN 40 MG/0.4 ML SQ SCH (15:31)
[2020-04-18 19:26] VITALS: BP 127/72
[2020-04-18] MEDS: NICOTINE 21 MG/24 HR PATCH.TD24 TD SCH (21:07)
[2020-04-19] MEDS: HYDROmorphone 2 MG/ML, 1ML IVPush PRN ×5 (00:48→20:51)
[2020-04-19 01:12] VITALS: BP 114/64
[2020-04-19 08:32] VITALS: BP 119/76
[2020-04-19] MEDS: SENNA/DOCUSATE TABLET PO SCH (10:11)
[2020-04-19 10:19] LABS: SICKLE CELLS 2+
[2020-04-19 15:59] VITALS: BP 107/67
[2020-04-19] MEDS ORDERED: OMNIPAQUE 350 MG/ML, 75ML BOTTLE ONE (17:25)
[2020-04-19] MEDS: ENOXAPARIN 40 MG/0.4 ML SQ SCH (18:43)
[2020-04-19 19:31] VITALS: BP 120/67
[2020-04-19] MEDS: NICOTINE 21 MG/24 HR PATCH.TD24 TD SCH (20:51)
[2020-04-20 00:22] VITALS: BP 129/75
[2020-04-20] MEDS: HYDROmorphone 2 MG/ML, 1ML IVPush PRN ×3 (00:24→10:30)
[2020-04-20] MEDS: ONDANSETRON ODT 4 MG PO PRN (01:28)
[2020-04-20 07:13] LABS: ANION GAP 5 mmol/L (5-15); CALCIUM 8.4 mg/dL (8.5-10.1); CHLORIDE 108 mmol/L (98-107); CREATININE 0.81 mg/dL (0.7-1.3)
[2020-04-20 07:14] LABS: ALANINE AMINOTRANSFERASE 23 U/L (12-78); ALBUMIN 3.3 g/dL (3.4-5.0)
[2020-04-20 07:16] LABS: ALKALINE PHOSPHATASE 82 U/L (45-117); TOTAL PROTEIN 6.7 g/dL (6.4-8.2)
[2020-04-20 07:25] VITALS: BP 117/63
[2020-04-20 07:36] LABS: MEAN CORPUSCULAR HGB CONC 34.9 g/dL (33.2-36.2); MEAN PLATELET VOLUME 7.2 fL (7.4-10.4); PLATELET COUNT 370 x10^3/uL (130-400); RED BLOOD COUNT 2.04 x10^6/uL (4.38-5.82); RED CELL DISTRIBUTION WIDTH 24.4 % (9.4-14.8)
[2020-04-20 07:37] LABS: MD YES
[2020-04-20 07:42] LABS: NRBC % (MANUAL) 1 % (0-1)
[2020-04-20 07:45] LABS: ANISOCYTOSIS 2+; BASOS% (MANUAL) 1 % (0-1); EOS#(MANUAL) 1.67 x10^3/uL (0.0-0.4); EOS% (MANUAL) 17 % (1-7); LYMPH#(MANUAL) 2.16 x10^3/uL (1-3.4); LYMPHS% (MANUAL) 22 % (22-44); MONOS#(MANUAL) 0.88 x10^3/uL (0.3-2.7); MONOS% (MANUAL) 9 % (2-9); POLYCHROMASIA 1+; SEGS% (MANUAL) 51 % (42-75)
[2020-04-20 07:46] LABS: OVALOCYTES 1+; SICKLE CELLS 2+; TARGET CELLS 1+; TEAR DROPS 1+
[2020-04-20 07:47] LABS: <PLATELET ESTIMATE> ADEQUATE; <PLT MORPHOLOGY> NORMAL PLT MORPH
[2020-04-20] MEDS: SENNA/DOCUSATE TABLET PO SCH (10:30)
[2020-04-20 13:38] VITALS: BP 120/64
[2020-04-20 17:18] LABS: HCT (SEDRATE) 23.1 % (39.2-51.8)
[2020-04-20] MEDS: HYDROcodone/APAP 5/325 TABLET PO PRN (17:41)
[2020-04-20 19:40] VITALS: BP 113/58
[2020-04-20] MEDS: ENOXAPARIN 40 MG/0.4 ML SQ SCH ×2 (21:00→21:42)
[2020-04-20] MEDS: NICOTINE 21 MG/24 HR PATCH.TD24 TD SCH (21:42)
[2020-04-21] MEDS: HYDROcodone/APAP 5/325 TABLET PO PRN (01:16)
[2020-04-21 02:00] VITALS: BP 136/81
[2020-04-21 05:32] LABS: MEAN CORPUSCULAR HEMOGLOBIN 34.8 pg (27.5-34.5); MEAN CORPUSCULAR HGB CONC 34.4 g/dL (33.2-36.2); MEAN CORPUSCULAR VOLUME 101.2 fL (81-97); MEAN PLATELET VOLUME 7.5 fL (7.4-10.4); PLATELET COUNT 502 x10^3/uL (130-400); RED BLOOD COUNT 2.23 x10^6/uL (4.38-5.82); RED CELL DISTRIBUTION WIDTH 25.4 % (9.4-14.8)
[2020-04-21 05:40] LABS: ALBUMIN 3.6 g/dL (3.4-5.0); ANION GAP 4 mmol/L (5-15); CALCIUM 8.7 mg/dL (8.5-10.1); CHLORIDE 104 mmol/L (98-107)
[2020-04-21 05:43] LABS: ALANINE AMINOTRANSFERASE 23 U/L (12-78); ALKALINE PHOSPHATASE 74 U/L (45-117); BILIRUBIN,TOTAL 2.8 mg/dL (0.2-1.0); TOTAL PROTEIN 6.8 g/dL (6.4-8.2)
[2020-04-21 06:00] LABS: MD YES
[2020-04-21 06:05] LABS: ANISOCYTOSIS 2+; EOS#(MANUAL) 2.43 x10^3/uL (0.0-0.4); EOS% (MANUAL) 19 % (1-7); LYMPH#(MANUAL) 3.58 x10^3/uL (1-3.4); LYMPHS% (MANUAL) 28 % (22-44); MONOS#(MANUAL) 0.64 x10^3/uL (0.3-2.7); MONOS% (MANUAL) 5 % (2-9); NRBC % (MANUAL) 1 % (0-1); SEG#(MANUAL) 6.14 x10^3/uL (1.8-6.8); SEGS% (MANUAL) 48 % (42-75)
[2020-04-21 06:06] LABS: <PLATELET ESTIMATE> INCREASED; LARGE PLATELETS 1+; POLYCHROMASIA 1+; SICKLE CELLS 2+; TARGET CELLS 1+; TEAR DROPS 1+
[2020-04-21 08:01] VITALS: BP 127/58
[2020-04-21 09:24] LABS: RED BLOOD COUNT 2.24 x10^6/uL (4.38-5.82)
[2020-04-21 09:25] LABS: RETICULOCYTE COUNT % 9.04 % (0.5-1.5)
[2020-04-21 09:26] LABS: ABSOLUTE RETICS # 0.202 x10^6/uL (0.5-1.5)
[2020-04-21] MEDS: SENNA/DOCUSATE TABLET PO SCH (09:33)
[2020-04-21] MEDS ORDERED: ACET325T26 PO (11:00)
[2020-04-21] MEDS ORDERED: NICO-487 TD (11:00)
--- NOTE | 2020-04-21 23:08 | NUR ---
chart accessed for records request from [facility].
== END 2020-04-21 13:30 | disposition home or self-care (01) | DRG 811 ==
LOC: ED 20:37 → INTOOBSV 21:18 → OBSVTOIN 21:18 → EDIP 21:18 → 3N 22:10 → DCLOUNGE 04-21 13:22
PROVIDERS: ADMIT Internal Medicine; ATTEND Hospitalist
PROC: 30233N1 Transfusion of Nonautologous Red Blood Cells into Peripheral Vein, Percutaneous Approach (ICD-10-PCS; principal; 2020-04-14)
DX: D57.00 Hb-SS disease with crisis, unspecified (principal); J96.01 Acute respiratory failure with hypoxia; J98.11 Atelectasis; F14.10 Cocaine abuse, uncomplicated; F17.200 Nicotine dependence, unspecified, uncomplicated; F17.210 Nicotine dependence, cigarettes, uncomplicated; D72.829 Elevated white blood cell count, unspecified; D64.9 Anemia, unspecified; D47.3 Essential (hemorrhagic) thrombocythemia; E80.6 Other disorders of bilirubin metabolism; F19.10 Other psychoactive substance abuse, uncomplicated; E11.9 Type 2 diabetes mellitus without complications; Z88.5 Allergy status to narcotic agent; Z90.89 Acquired absence of other organs
CPT/HCPCS: 36415; 71045; 71046; 71275; 80053; 81003; 82607; 83615; 84145; 85025; 85045; 85651; 86850; 86900; 86902; 86923; 96361; 96374; 96375; 96376; G0378; J1170; J1650; J1885; J2405; J3480; Q0162; Q9967; J7030; P9016

== ENCOUNTER 2020-06-02 02:49 | Emergency (ER) | payer MEDICAID ==
[~2020-06-02] VITALS: Ht 180.3 cm; Wt 72.2 kg
[~2020-06-02 02:49] MED LIST changes: +NICO-487 TD
[2020-06-02 02:51] VITALS: BP 121/62
--- NOTE | 2020-06-02 03:08 | NUR ---
PT TO ED WITH BILATERAL ABCESSES IN ARMPIT APPX 1/2IN DIAMETER. PT REPORTS INITIALLY NOTICING THEM APPX 4 DAYS AGO, CHANGED DEODORANT X5 DAYS AGO. DENIES ANY OTHER MEDICAL C/O AT THIS TIME. PT PLACED ON SPOX2 MONITORING, CALL LIGHT WITHIN REACH, ALL SAFETY MEASURES IN PLACE.
[2020-06-02] MEDS ORDERED: CEPHALEXIN 500 MG CAPSULE PO ONE (03:30)
[2020-06-02] MEDS ORDERED: SULFAMETH./TRIMETHOPRIM DS 800MG/160MG TABLET PO ONE (03:30)
[2020-06-02] MEDS ORDERED: SULFAMETH./TRIMETHOPRIM DS 800MG/160MG TABLET ONE (03:31)
[2020-06-02] MEDS ORDERED: CEPHALEXIN 500 MG CAPSULE ONE (03:31)
== END 2020-06-02 03:41 | disposition home or self-care (01) ==
LOC: ED 03:29
DX: L73.9 Follicular disorder, unspecified (principal); F17.200 Nicotine dependence, unspecified, uncomplicated; J45.909 Unspecified asthma, uncomplicated; I10 Essential (primary) hypertension; E11.9 Type 2 diabetes mellitus without complications
CPT/HCPCS: 99283

== ENCOUNTER 2020-08-26 12:03 | Inpatient (IN) | payer MEDICAID, OTHER ==
[~2020-08-26] VITALS: Ht 180.3 cm; Wt 71.3 kg
[2020-08-26] MEDS ORDERED: ONDANSETRON 2MG/ML, 2ML IVPush ONE (12:30)
[2020-08-26] MEDS ORDERED: HYDROmorphone 1 MG/ML, 1ML INJ IV ONE (12:30)
[2020-08-26] MEDS ORDERED: SODIUM CHLORIDE 0.9% 1,000ML IVBOLUS ONE ×2 (12:30→13:30)
[2020-08-26 12:39] LABS: ABSOLUTE RETICS # 0.471 x10^6/uL (0.5-1.5); MEAN CORPUSCULAR HEMOGLOBIN 36.3 pg (27.5-34.5); MEAN CORPUSCULAR HGB CONC 34.7 g/dL (33.2-36.2); MEAN PLATELET VOLUME 7.2 fL (7.4-10.4); PLATELET COUNT 489 x10^3/uL (130-400); RED BLOOD COUNT 2.45 x10^6/uL (4.38-5.82); RETICULOCYTE COUNT % 19.22 % (0.5-1.5)
[2020-08-26 12:48] LABS: INTERNATIONAL NORMALIZED RATIO 1.03 (0.93-1.1); PROTHROMBIN TIME 10.9 Seconds (9.6-11.5)
[2020-08-26] MEDS ORDERED: HYDROmorphone 1 MG/ML, 1ML INJ ONE (12:49)
[2020-08-26] MEDS ORDERED: ONDANSETRON 2MG/ML, 2ML ONE (12:49)
[2020-08-26 12:50] LABS: ALBUMIN 4.5 g/dL (3.4-5.0); ANION GAP 6 mmol/L (5-15); CALCIUM 8.4 mg/dL (8.5-10.1); CHLORIDE 115 mmol/L (98-107)
[2020-08-26 12:55] LABS: CREATININE 0.81 mg/dL (0.7-1.3)
[2020-08-26 12:56] LABS: ALANINE AMINOTRANSFERASE 29 U/L (12-78); ALKALINE PHOSPHATASE 87 U/L (45-117); BILIRUBIN,TOTAL 3.9 mg/dL (0.2-1.0); TOTAL PROTEIN 7.7 g/dL (6.4-8.2); TROPONIN I 0.038 ng/mL (0.000-0.045)
[2020-08-26 12:59] LABS: MD YES
[2020-08-26 13:00] LABS: EOS#(MANUAL) 0.36 x10^3/uL (0.0-0.4); EOS% (MANUAL) 2 % (1-7); LYMPH#(MANUAL) 2.31 x10^3/uL (1-3.4); LYMPHS% (MANUAL) 13 % (22-44); MONOS#(MANUAL) 2.14 x10^3/uL (0.3-2.7); MONOS% (MANUAL) 12 % (2-9); SEG#(MANUAL) 12.99 x10^3/uL (1.8-6.8); SEGS% (MANUAL) 73 % (42-75)
[2020-08-26 13:01] LABS: <PLATELET ESTIMATE> INCREASED; ANISOCYTOSIS 1+; LARGE PLATELETS 1+; POLYCHROMASIA 2+; SCHISTOCYTES 1+; SICKLE CELLS 2+; TARGET CELLS 1+
[2020-08-26] MEDS ORDERED: CEFTRIAXONE PMX 1GM/50ML 50 ML IVPB ONE (13:30)
[2020-08-26] MEDS ORDERED: AZITHROMYCIN 500 MG in SODIUM CHLORIDE 0.9% 250 ML IV ONE (13:30)
[2020-08-26] MEDS ORDERED: CEFTRIAXONE PMX 1GM/50ML 50 ML ONE (14:05)
--- NOTE | 2020-08-26 14:09 | NUR ---
abx administered after cultures drawn
[2020-08-26] MEDS ORDERED: SODIUM CHLORIDE FLUSH 10ML SYR IVF PRN (14:30)
--- NOTE | 2020-08-26 15:24 | NUR ---
PT C/O AND NAUSEA. DR MEJÍA AWARE. AWAITING ORDERS
[2020-08-26] MEDS ORDERED: ACETAMINOPHEN 325 MG TABLET PO PRN ×2 (15:30)
[2020-08-26] MEDS ORDERED: POLYETHYLENE GLYCOL 17 GM PACKET PO PRN (15:30)
[2020-08-26] MEDS ORDERED: ONDANSETRON ODT 4 MG PO PRN (15:30)
[2020-08-26] MEDS ORDERED: KETOROLAC 30 MG/1 ML ONE (15:42)
[2020-08-26] MEDS ORDERED: METOCLOPRAMIDE 5 MG/ML, 2ML ONE (15:42)
[2020-08-26] MEDS: KETOROLAC 30 MG/1 ML IV PRN (15:46)
[2020-08-26] MEDS: METOCLOPRAMIDE 5 MG/ML, 2ML IVPush SCH ×2 (15:47→21:30)
[2020-08-26 16:08] LABS: C-REACTIVE PROTEIN, QUANT 0.42 mg/dL (0.02-0.49)
[2020-08-26] MEDS ORDERED: NICOTINE 21 MG/24 HR PATCH.TD24 ONE (16:14)
[2020-08-26] MEDS ORDERED: ENOXAPARIN 40 MG/0.4 ML ONE (16:14)
[2020-08-26] MEDS: NICOTINE 21 MG/24 HR PATCH.TD24 TD SCH (16:38)
[2020-08-26] MEDS: ENOXAPARIN 40 MG/0.4 ML SQ SCH (16:38)
[2020-08-26] MEDS: LACTATED RINGERS 1,000 ML IV SCH (16:39)
--- NOTE | 2020-08-26 19:00 | NUR ---
droplet plus precautions placed patient updated on rationale
[2020-08-26] MEDS ORDERED: ALBUTEROL HFA 90 MCG/SPRAY INH PRN (19:30)
[2020-08-26] MEDS ORDERED: NICOTINE 14MG/24 HR PATCH.TD24 ONE (19:30)
[2020-08-26] MEDS: NICOTINE 14MG/24 HR PATCH.TD24 TD SCH (19:30)
[2020-08-26] MEDS ORDERED: DOXYCYCLINE 100MG TABLET ONE (19:31)
[2020-08-26] MEDS ORDERED: HYDROcodone/APAP 10/325 MG TABLET ONE (19:31)
[2020-08-26] MEDS ORDERED: ASCORBIC ACID 500 MG TABLET ONE (19:31)
[2020-08-26] MEDS ORDERED: GUAIFENESIN 200 MG TABLET ONE (19:31)
[2020-08-26] MEDS: ASCORBIC ACID 500 MG TABLET PO SCH (19:49)
[2020-08-26] MEDS: GUAIFENESIN ER 600 MG TABLET PO SCH (19:49)
[2020-08-26] MEDS: DOXYCYCLINE 100MG TABLET PO SCH (19:49)
[2020-08-26] MEDS: HYDROcodone/APAP 10/325 MG TABLET PO PRN (19:50)
[2020-08-26] MEDS ORDERED: MELATONIN 5 MG TABLET PO PRN (21:00)
--- NOTE | 2020-08-26 21:54 | NUR ---
WITH REASSESSMENT" PATIENT DEEP ASLEEP. VSS ON [facility] COORD[facility] LR INFUSING POC CLARIFIED WITH THROUGHPUT RN. THROUGHPUT RN ESTIMATES PATIENT WILL NOT HAVE A AVAILABLE INPATIENT HOSPITAL BED UNTIL TOMORROW (08/27)
--- NOTE | 2020-08-26 23:52 | NUR ---
bedside report from Arturo RN, pt resting on gurney, eyes closed, NAD, appears comfortable, even and unlabored respirations. wctm. waiting for admit bed.
--- NOTE | 2020-08-26 23:55 | NUR ---
REPORT TO BRANT SMITH
--- NOTE | 2020-08-27 00:25 | NUR ---
pt resting on gurney, eyes closed, NAD, appears comfortable, even and unlabored respirations. wctm. waiting for admit bed.
--- NOTE | 2020-08-27 01:08 | NUR ---
pt resting on gurney, eyes closed, NAD, appears comfortable, even and unlabored respirations. wctm. waiting for admit bed.
--- NOTE | 2020-08-27 02:01 | NUR ---
bedside report to Radha SMITH, pt care transferred at this time. Pt resting on gurney, NAD, given water for comfort, vss, even and unlabored respirations.
[2020-08-27] MEDS ORDERED: KETOROLAC 30 MG/1 ML ONE ×3 (02:39→20:03)
[2020-08-27] MEDS ORDERED: METOCLOPRAMIDE 5 MG/ML, 2ML ONE ×4 (02:39→20:03)
[2020-08-27] MEDS: METOCLOPRAMIDE 5 MG/ML, 2ML IVPush SCH ×4 (02:44→20:13)
[2020-08-27] MEDS: KETOROLAC 30 MG/1 ML IV PRN ×3 (02:44→20:13)
[2020-08-27] MEDS: LACTATED RINGERS 1,000 ML IV SCH ×3 (02:45→17:16)
[2020-08-27] MEDS ORDERED: DEXAMETHASONE 4 MG/ML, 1ML ONE (07:43)
[2020-08-27] MEDS ORDERED: ASCORBIC ACID 500 MG TABLET ONE ×2 (07:43→15:43)
[2020-08-27] MEDS ORDERED: SENNA/DOCUSATE TABLET ONE (07:51)
[2020-08-27] MEDS ORDERED: ZINC SULFATE 220 MG CAPSULE ONE (07:51)
[2020-08-27] MEDS ORDERED: GUAIFENESIN ER 600 MG TABLET ONE ×3 (07:51→20:16)
[2020-08-27] MEDS ORDERED: DOXYCYCLINE 100MG TABLET ONE ×2 (07:52→20:03)
[2020-08-27 08:00] VITALS: BP 129/55
[2020-08-27] MEDS: SENNA/DOCUSATE TABLET PO SCH (09:00)
[2020-08-27] MEDS: DOXYCYCLINE 100MG TABLET PO SCH ×2 (09:15→20:15)
[2020-08-27] MEDS: DEXAMETHASONE 4 MG/ML, 1ML IVPush SCH (09:15)
[2020-08-27] MEDS: GUAIFENESIN ER 600 MG TABLET PO SCH ×2 (09:15→20:18)
[2020-08-27] MEDS: ZINC SULFATE 220 MG CAPSULE PO SCH (09:15)
[2020-08-27] MEDS: ASCORBIC ACID 500 MG TABLET PO SCH ×2 (09:16→15:53)
[2020-08-27 09:22] LABS: MEAN CORPUSCULAR HEMOGLOBIN 36.7 pg (27.5-34.5); MEAN CORPUSCULAR HGB CONC 35.4 g/dL (33.2-36.2); MEAN PLATELET VOLUME 7.3 fL (7.4-10.4); PLATELET COUNT 432 x10^3/uL (130-400); RED BLOOD COUNT 2.03 x10^6/uL (4.38-5.82); RED CELL DISTRIBUTION WIDTH 21.7 % (9.4-14.8)
[2020-08-27 09:50] LABS: MD YES
[2020-08-27 09:51] LABS: EOS#(MANUAL) 1.37 x10^3/uL (0.0-0.4); EOS% (MANUAL) 10 % (1-7); LYMPH#(MANUAL) 0.82 x10^3/uL (1-3.4); LYMPHS% (MANUAL) 6 % (22-44); MONOS#(MANUAL) 0.96 x10^3/uL (0.3-2.7); MONOS% (MANUAL) 7 % (2-9); SEG#(MANUAL) 10.55 x10^3/uL (1.8-6.8); SEGS% (MANUAL) 77 % (42-75)
[2020-08-27 09:52] LABS: <PLATELET ESTIMATE> INCREASED; ANISOCYTOSIS 1+; LARGE PLATELETS 1+; POLYCHROMASIA 2+; SCHISTOCYTES 1+; SICKLE CELLS 2+; TARGET CELLS 1+
[2020-08-27] MEDS: CYANOCOBALAMIN 1,000 MCG TABLET PO SCH (10:42)
[2020-08-27 11:03] LABS: RED BLOOD COUNT 2.03 x10^6/uL (4.38-5.82)
[2020-08-27 11:04] LABS: RETICULOCYTE COUNT % 10.76 % (0.5-1.5)
[2020-08-27 11:05] LABS: ABSOLUTE RETICS # 0.218 x10^6/uL (0.5-1.5)
[2020-08-27] MEDS ORDERED: HYDROcodone/APAP 5/325 TABLET ONE (13:50)
[2020-08-27] MEDS: HYDROcodone/APAP 10/325 MG TABLET PO PRN (13:54)
[2020-08-27 13:55] VITALS: BP 127/72
[2020-08-27] MEDS ORDERED: ENOXAPARIN 40 MG/0.4 ML ONE (15:42)
[2020-08-27] MEDS ORDERED: NICOTINE 21 MG/24 HR PATCH.TD24 ONE (15:43)
[2020-08-27] MEDS ORDERED: CEFTRIAXONE PMX 2GM/50ML 50 ML ONE (15:43)
[2020-08-27] MEDS: NICOTINE 21 MG/24 HR PATCH.TD24 TD SCH (15:52)
[2020-08-27] MEDS: CEFTRIAXONE PMX 2GM/50ML 50 ML IVPB SCH (15:52)
[2020-08-27] MEDS: ENOXAPARIN 40 MG/0.4 ML SQ SCH (15:52)
[2020-08-27] MEDS: NICOTINE 14MG/24 HR PATCH.TD24 TD SCH (19:22)
[2020-08-27 19:36] VITALS: BP 123/65
[2020-08-27] MEDS ORDERED: TRAZODONE 50MG TABLET ONE (20:03)
[2020-08-27] MEDS: TRAZODONE 50MG TABLET PO PRN (20:15)
[2020-08-28] VITALS (10 sets, daily range): BP systolic 104–126; BP diastolic 39–78
[2020-08-28] MEDS: LACTATED RINGERS 1,000 ML IV SCH ×4 (00:34→20:21)
[2020-08-28] MEDS ORDERED: KETOROLAC 30 MG/1 ML ONE ×3 (02:56→22:34)
[2020-08-28] MEDS ORDERED: METOCLOPRAMIDE 5 MG/ML, 2ML ONE ×2 (02:56→22:34)
[2020-08-28] MEDS: METOCLOPRAMIDE 5 MG/ML, 2ML IVPush SCH ×4 (02:59→22:37)
[2020-08-28] MEDS: KETOROLAC 30 MG/1 ML IV PRN ×3 (02:59→22:37)
[2020-08-28] MEDS ORDERED: GUAIFENESIN ER 600 MG TABLET ONE ×2 (08:06→19:59)
[2020-08-28] MEDS ORDERED: SENNA/DOCUSATE TABLET ONE (08:06)
[2020-08-28] MEDS ORDERED: METOCLOPRAMIDE 10MG TABLET ONE (08:06)
[2020-08-28] MEDS ORDERED: DEXAMETHASONE 4 MG/ML, 1ML ONE (08:06)
[2020-08-28] MEDS ORDERED: ZINC SULFATE 220 MG CAPSULE ONE (08:06)
[2020-08-28] MEDS ORDERED: DOXYCYCLINE 100MG TABLET ONE ×2 (08:06→19:59)
[2020-08-28] MEDS ORDERED: ASCORBIC ACID 500 MG TABLET ONE ×2 (08:07→17:07)
[2020-08-28] MEDS: DEXAMETHASONE 4 MG/ML, 1ML IVPush SCH (09:01)
[2020-08-28] MEDS: ASCORBIC ACID 500 MG TABLET PO SCH ×2 (09:02→17:12)
[2020-08-28] MEDS: ZINC SULFATE 220 MG CAPSULE PO SCH (09:02)
[2020-08-28] MEDS: GUAIFENESIN ER 600 MG TABLET PO SCH ×2 (09:02→20:15)
[2020-08-28] MEDS: SENNA/DOCUSATE TABLET PO SCH (09:03)
[2020-08-28] MEDS: CYANOCOBALAMIN 1,000 MCG TABLET PO SCH (09:03)
[2020-08-28] MEDS: DOXYCYCLINE 100MG TABLET PO SCH ×2 (09:03→20:15)
[2020-08-28 09:18] LABS: MEAN CORPUSCULAR HEMOGLOBIN 35.8 pg (27.5-34.5); MEAN CORPUSCULAR HGB CONC 34.8 g/dL (33.2-36.2); MEAN PLATELET VOLUME 7.5 fL (7.4-10.4); PLATELET COUNT 431 x10^3/uL (130-400); RED BLOOD COUNT 1.93 x10^6/uL (4.38-5.82); RED CELL DISTRIBUTION WIDTH 21.6 % (9.4-14.8)
--- NOTE | 2020-08-28 09:24 | NUR ---
CRITICAL LABS FOR HGB AND HCT FROM LAB 09, GIVEN TO LUIS SMITH
[2020-08-28 10:21] LABS: MD YES
[2020-08-28 10:24] LABS: EOS#(MANUAL) 0.17 x10^3/uL (0.0-0.4); EOS% (MANUAL) 1 % (1-7); LYMPH#(MANUAL) 3.93 x10^3/uL (1-3.4); LYMPHS% (MANUAL) 23 % (22-44); MONOS#(MANUAL) 1.54 x10^3/uL (0.3-2.7); MONOS% (MANUAL) 9 % (2-9); SEG#(MANUAL) 11.46 x10^3/uL (1.8-6.8); SEGS% (MANUAL) 67 % (42-75)
[2020-08-28 10:25] LABS: ANISOCYTOSIS 2+; POLYCHROMASIA 2+; SICKLE CELLS 2+; TARGET CELLS 1+
[2020-08-28 10:26] LABS: <PLATELET ESTIMATE> INCREASED; <PLT MORPHOLOGY> NORMAL PLT MORPH
[2020-08-28] MEDS ORDERED: ACETAMINOPHEN 500 MG TABLET ONE (11:56)
[2020-08-28] MEDS ORDERED: DIPHENHYDRAMINE 50 MG/ML, 1ML ONE (11:56)
[2020-08-28] MEDS ORDERED: ACETAMINOPHEN 500 MG TABLET PO ONE (12:00)
[2020-08-28] MEDS ORDERED: DIPHENHYDRAMINE 50 MG/ML, 1ML IVPush ONE (12:00)
[2020-08-28] MEDS ORDERED: ENOXAPARIN 40 MG/0.4 ML ONE (15:07)
[2020-08-28] MEDS ORDERED: CEFTRIAXONE PMX 2GM/50ML 50 ML ONE (15:08)
[2020-08-28] MEDS ORDERED: NICOTINE 21 MG/24 HR PATCH.TD24 ONE (15:09)
[2020-08-28] MEDS: CEFTRIAXONE PMX 2GM/50ML 50 ML IVPB SCH (15:16)
[2020-08-28] MEDS: NICOTINE 21 MG/24 HR PATCH.TD24 TD SCH (15:16)
[2020-08-28] MEDS: ENOXAPARIN 40 MG/0.4 ML SQ SCH (15:16)
[2020-08-28] MEDS: NICOTINE 14MG/24 HR PATCH.TD24 TD SCH (19:42)
[2020-08-28] MEDS ORDERED: TRAZODONE 50MG TABLET ONE (19:59)
[2020-08-28] MEDS: TRAZODONE 50MG TABLET PO PRN (20:16)
[2020-08-29] MEDS ORDERED: CALCIUM CARBONATE 500 MG TAB.CHEW ONE (01:36)
[2020-08-29 01:41] VITALS: BP 118/73
[2020-08-29] MEDS ORDERED: CALCIUM CARBONATE 500 MG TAB.CHEW PO PRN (02:00)
[2020-08-29] MEDS: LACTATED RINGERS 1,000 ML IV SCH ×3 (03:58→19:40)
[2020-08-29] MEDS: METOCLOPRAMIDE 5 MG/ML, 2ML IVPush SCH ×4 (03:58→21:35)
[2020-08-29] MEDS ORDERED: CALCIUM CARBONATE 500 MG TAB.CHEW PO SCH (06:00)
[2020-08-29 06:05] VITALS: BP 124/63
[2020-08-29] MEDS: KETOROLAC 30 MG/1 ML IV PRN ×3 (06:17→19:32)
[2020-08-29 06:34] VITALS: BP 129/70
[2020-08-29 08:58] LABS: MEAN CORPUSCULAR HEMOGLOBIN 34.5 pg (27.5-34.5); MEAN CORPUSCULAR HGB CONC 35.2 g/dL (33.2-36.2); MEAN PLATELET VOLUME 7.4 fL (7.4-10.4); PLATELET COUNT 404 x10^3/uL (130-400); RED BLOOD COUNT 2.25 x10^6/uL (4.38-5.82); RED CELL DISTRIBUTION WIDTH 23.2 % (9.4-14.8)
[2020-08-29 09:03] LABS: MD YES
[2020-08-29] MEDS: GUAIFENESIN ER 600 MG TABLET PO SCH ×2 (09:10→21:33)
[2020-08-29] MEDS: SENNA/DOCUSATE TABLET PO SCH (09:11)
[2020-08-29] MEDS: DEXAMETHASONE 4 MG/ML, 1ML IVPush SCH (09:11)
[2020-08-29] MEDS: DOXYCYCLINE 100MG TABLET PO SCH ×2 (09:12→21:33)
[2020-08-29] MEDS: ASCORBIC ACID 500 MG TABLET PO SCH ×2 (09:12→15:32)
[2020-08-29] MEDS: CYANOCOBALAMIN 1,000 MCG TABLET PO SCH (09:13)
[2020-08-29] MEDS: ZINC SULFATE 220 MG CAPSULE PO SCH (09:13)
[2020-08-29 09:39] LABS: ANISOCYTOSIS 2+; BASOS#(MANUAL) 0.17 x10^3/uL (0-0.1); BASOS% (MANUAL) 1 % (0-1); EOS#(MANUAL) 0.17 x10^3/uL (0.0-0.4); EOS% (MANUAL) 1 % (1-7); LYMPH#(MANUAL) 3.93 x10^3/uL (1-3.4); LYMPHS% (MANUAL) 23 % (22-44); MONOS#(MANUAL) 1.88 x10^3/uL (0.3-2.7); MONOS% (MANUAL) 11 % (2-9); SEG#(MANUAL) 10.94 x10^3/uL (1.8-6.8); SEGS% (MANUAL) 64 % (42-75); SICKLE CELLS 2+; TARGET CELLS 1+
[2020-08-29 09:40] LABS: POLYCHROMASIA 2+
[2020-08-29 09:44] LABS: <PLATELET ESTIMATE> INCREASED; <PLT MORPHOLOGY> NORMAL PLT MORPH
[2020-08-29 12:12] VITALS: BP 112/71
[2020-08-29] MEDS: HYDROcodone/APAP 10/325 MG TABLET PO PRN ×2 (15:32→21:35)
[2020-08-29] MEDS: NICOTINE 21 MG/24 HR PATCH.TD24 TD SCH (15:32)
[2020-08-29] MEDS: ENOXAPARIN 40 MG/0.4 ML SQ SCH (15:32)
[2020-08-29] MEDS: CEFTRIAXONE PMX 2GM/50ML 50 ML IVPB SCH (15:42)
[2020-08-29 18:28] VITALS: BP 114/60
[2020-08-29] MEDS: NICOTINE 14MG/24 HR PATCH.TD24 TD SCH (19:30)
[2020-08-29] MEDS: ALBUTEROL HFA 90 MCG/SPRAY INH SCH (21:15)
[2020-08-30] MEDS: KETOROLAC 30 MG/1 ML IV PRN ×3 (01:30→13:32)
[2020-08-30] MEDS: HYDROcodone/APAP 10/325 MG TABLET PO PRN ×6 (01:30→21:40)
[2020-08-30 01:31] VITALS: BP 120/80
[2020-08-30] MEDS: ALBUTEROL HFA 90 MCG/SPRAY INH SCH ×5 (03:00→20:19)
[2020-08-30 05:09] LABS: MEAN CORPUSCULAR HEMOGLOBIN 34.3 pg (27.5-34.5); MEAN CORPUSCULAR HGB CONC 35.1 g/dL (33.2-36.2); MEAN PLATELET VOLUME 7.5 fL (7.4-10.4); PLATELET COUNT 367 x10^3/uL (130-400); RED BLOOD COUNT 2.04 x10^6/uL (4.38-5.82); RED CELL DISTRIBUTION WIDTH 24.1 % (9.4-14.8)
[2020-08-30 05:45] LABS: MD YES
[2020-08-30 05:48] LABS: <PLATELET ESTIMATE> ADEQUATE; <PLT MORPHOLOGY> NORMAL PLT MORPH; ANISOCYTOSIS 2+; EOS#(MANUAL) 0.19 x10^3/uL (0.0-0.4); EOS% (MANUAL) 1 % (1-7); LYMPH#(MANUAL) 4.97 x10^3/uL (1-3.4); LYMPHS% (MANUAL) 26 % (22-44); METAMYELOCYTES# (MANUAL) 0.38 x10^3/uL (0-0); METAMYELOCYTES% (MANUAL) 2 % (0-1); MONOS#(MANUAL) 2.29 x10^3/uL (0.3-2.7); MONOS% (MANUAL) 12 % (2-9); POLYCHROMASIA 2+; SEG#(MANUAL) 11.27 x10^3/uL (1.8-6.8); SEGS% (MANUAL) 59 % (42-75); SICKLE CELLS 2+; TARGET CELLS 1+
[2020-08-30] MEDS: METOCLOPRAMIDE 5 MG/ML, 2ML IVPush SCH ×4 (05:54→21:40)
[2020-08-30 06:49] VITALS: BP 122/69
[2020-08-30] MEDS: DOXYCYCLINE 100MG TABLET PO SCH ×2 (09:10→20:19)
[2020-08-30] MEDS: ZINC SULFATE 220 MG CAPSULE PO SCH (09:10)
[2020-08-30] MEDS: CYANOCOBALAMIN 1,000 MCG TABLET PO SCH (09:10)
[2020-08-30] MEDS: GUAIFENESIN ER 600 MG TABLET PO SCH ×2 (09:10→20:19)
[2020-08-30] MEDS: SENNA/DOCUSATE TABLET PO SCH (09:10)
[2020-08-30] MEDS: ASCORBIC ACID 500 MG TABLET PO SCH ×2 (09:10→17:28)
[2020-08-30] MEDS: LACTATED RINGERS 1,000 ML IV SCH ×2 (09:11→20:00)
[2020-08-30] MEDS: DEXAMETHASONE 4 MG/ML, 1ML IVPush SCH (09:11)
[2020-08-30] MEDS: GABAPENTIN 300 MG CAPSULE PO PRN (10:06)
[2020-08-30 12:06] VITALS: BP 144/94
[2020-08-30] MEDS: NICOTINE 21 MG/24 HR PATCH.TD24 TD SCH (16:11)
[2020-08-30] MEDS: OxyconTIN ER 10 MG TAB.ER PO SCH (16:11)
[2020-08-30] MEDS: ENOXAPARIN 40 MG/0.4 ML SQ SCH (16:12)
[2020-08-30] MEDS: CEFTRIAXONE PMX 2GM/50ML 50 ML IVPB SCH (17:27)
[2020-08-30] MEDS: NICOTINE 14MG/24 HR PATCH.TD24 TD SCH (17:33)
[2020-08-30 18:55] VITALS: BP 143/84
[2020-08-31] VITALS (7 sets, daily range): BP systolic 116–149; BP diastolic 61–92
[2020-08-31] MEDS: ALBUTEROL HFA 90 MCG/SPRAY INH SCH ×4 (03:15→20:54)
[2020-08-31] MEDS: OxyconTIN ER 10 MG TAB.ER PO SCH (03:50)
[2020-08-31] MEDS: METOCLOPRAMIDE 5 MG/ML, 2ML IVPush SCH ×3 (03:51→16:15)
[2020-08-31] MEDS: LACTATED RINGERS 1,000 ML IV SCH ×2 (03:54→20:24)
[2020-08-31 04:25] LABS: ABSOLUTE RETICS # 0.277 x10^6/uL (0.5-1.5); MEAN CORPUSCULAR HEMOGLOBIN 35.5 pg (27.5-34.5); MEAN CORPUSCULAR HGB CONC 35.9 g/dL (33.2-36.2); MEAN PLATELET VOLUME 7.8 fL (7.4-10.4); PLATELET COUNT 389 x10^3/uL (130-400); RED BLOOD COUNT 1.95 x10^6/uL (4.38-5.82); RED CELL DISTRIBUTION WIDTH 25.7 % (9.4-14.8); RETICULOCYTE COUNT % 14.17 % (0.5-1.5)
[2020-08-31 04:35] LABS: ALBUMIN 3.5 g/dL (3.4-5.0); ANION GAP 3 mmol/L (5-15); CALCIUM 8.1 mg/dL (8.5-10.1); CHLORIDE 108 mmol/L (98-107)
[2020-08-31 04:40] LABS: ALANINE AMINOTRANSFERASE 45 U/L (12-78); ALKALINE PHOSPHATASE 76 U/L (45-117); BILIRUBIN,TOTAL 3.2 mg/dL (0.2-1.0); CREATININE 0.56 mg/dL (0.7-1.3); TOTAL PROTEIN 6.2 g/dL (6.4-8.2)
[2020-08-31 05:42] LABS: MD YES
[2020-08-31 05:44] LABS: BAND#(MANUAL) 0.23 x10^3/uL; BANDS%(MANUAL) 1 % (0-7); EOS#(MANUAL) 0.23 x10^3/uL (0.0-0.4); EOS% (MANUAL) 1 % (1-7); LYMPH#(MANUAL) 6.47 x10^3/uL (1-3.4); LYMPHS% (MANUAL) 28 % (22-44); MONOS% (MANUAL) 13 % (2-9); SEG#(MANUAL) 13.17 x10^3/uL (1.8-6.8); SEGS% (MANUAL) 57 % (42-75)
[2020-08-31 05:45] LABS: ANISOCYTOSIS 2+
[2020-08-31 05:46] LABS: POLYCHROMASIA 2+; SICKLE CELLS 2+
[2020-08-31 05:47] LABS: <PLATELET ESTIMATE> ADEQUATE; <PLT MORPHOLOGY> NORMAL PLT MORPH; TARGET CELLS 1+
[2020-08-31] MEDS: HYDROcodone/APAP 10/325 MG TABLET PO PRN ×3 (07:35→20:23)
[2020-08-31] MEDS: ZINC SULFATE 220 MG CAPSULE PO SCH (09:40)
[2020-08-31] MEDS: DOXYCYCLINE 100MG TABLET PO SCH ×2 (09:40→20:23)
[2020-08-31] MEDS: GUAIFENESIN ER 600 MG TABLET PO SCH ×2 (09:40→20:23)
[2020-08-31] MEDS: ASCORBIC ACID 500 MG TABLET PO SCH ×2 (09:40→17:12)
[2020-08-31] MEDS: DEXAMETHASONE 4 MG/ML, 1ML IVPush SCH (09:42)
[2020-08-31] MEDS: SENNA/DOCUSATE TABLET PO SCH (09:43)
[2020-08-31] MEDS: CYANOCOBALAMIN 1,000 MCG TABLET PO SCH (09:57)
[2020-08-31] MEDS: KETOROLAC 30 MG/1 ML IV PRN (15:11)
[2020-08-31] MEDS: ENOXAPARIN 40 MG/0.4 ML SQ SCH (15:30)
[2020-08-31] MEDS: NICOTINE 21 MG/24 HR PATCH.TD24 TD SCH (16:14)
[2020-08-31] MEDS: CEFTRIAXONE PMX 2GM/50ML 50 ML IVPB SCH (16:16)
[2020-08-31] MEDS: POTASSIUM CHLORIDE 20 MEQ PACKET PO SCH (17:12)
[2020-08-31] MEDS: HYDROmorphone 2MG TABLET PO PRN (17:13)
[2020-08-31] MEDS: NICOTINE 14MG/24 HR PATCH.TD24 TD SCH (18:20)
[2020-08-31] MEDS: GABAPENTIN 300 MG CAPSULE PO PRN (20:23)
[2020-09-01] MEDS: HYDROmorphone 2MG TABLET PO PRN ×2 (00:12→10:20)
[2020-09-01] MEDS: METOCLOPRAMIDE 5 MG/ML, 2ML IVPush SCH ×5 (00:12→23:39)
[2020-09-01 00:57] VITALS: BP 133/70
[2020-09-01] MEDS: ALBUTEROL HFA 90 MCG/SPRAY INH SCH ×4 (03:00→21:00)
[2020-09-01] MEDS: LACTATED RINGERS 1,000 ML IV SCH ×3 (05:05→23:37)
[2020-09-01 06:03] LABS: MEAN CORPUSCULAR HEMOGLOBIN 34.2 pg (27.5-34.5); MEAN CORPUSCULAR HGB CONC 34.6 g/dL (33.2-36.2); MEAN PLATELET VOLUME 7.7 fL (7.4-10.4); PLATELET COUNT 383 x10^3/uL (130-400); RED BLOOD COUNT 2.21 x10^6/uL (4.38-5.82); RED CELL DISTRIBUTION WIDTH 26.1 % (9.4-14.8)
[2020-09-01 06:09] LABS: ANION GAP 7 mmol/L (5-15); CALCIUM 8.2 mg/dL (8.5-10.1); CHLORIDE 107 mmol/L (98-107); CREATININE 0.58 mg/dL (0.7-1.3)
[2020-09-01 06:38] VITALS: BP 126/72
[2020-09-01 06:40] LABS: MD YES
[2020-09-01 06:47] LABS: ANISOCYTOSIS 1+; BASOS#(MANUAL) 0.26 x10^3/uL (0-0.1); BASOS% (MANUAL) 1 % (0-1); EOS#(MANUAL) 0.26 x10^3/uL (0.0-0.4); EOS% (MANUAL) 1 % (1-7); LYMPH#(MANUAL) 8.61 x10^3/uL (1-3.4); LYMPHS% (MANUAL) 33 % (22-44); MONOS#(MANUAL) 3.39 x10^3/uL (0.3-2.7); MONOS% (MANUAL) 13 % (2-9); POLYCHROMASIA 2+; SEG#(MANUAL) 13.57 x10^3/uL (1.8-6.8); SEGS% (MANUAL) 52 % (42-75); SICKLE CELLS 2+; TARGET CELLS 1+
[2020-09-01 06:48] LABS: <PLATELET ESTIMATE> ADEQUATE; <PLT MORPHOLOGY> NORMAL PLT MORPH
[2020-09-01] MEDS: CYANOCOBALAMIN 1,000 MCG TABLET PO SCH (09:00)
[2020-09-01] MEDS: POTASSIUM CHLORIDE 20 MEQ PACKET PO SCH ×2 (10:02→16:06)
[2020-09-01] MEDS: ASCORBIC ACID 500 MG TABLET PO SCH (10:02)
[2020-09-01] MEDS: GUAIFENESIN ER 600 MG TABLET PO SCH (10:03)
[2020-09-01] MEDS: ZINC SULFATE 220 MG CAPSULE PO SCH (10:03)
[2020-09-01] MEDS: DOXYCYCLINE 100MG TABLET PO SCH (10:03)
[2020-09-01] MEDS: SENNA/DOCUSATE TABLET PO SCH (10:03)
[2020-09-01] MEDS: DEXAMETHASONE 4 MG/ML, 1ML IVPush SCH (10:04)
[2020-09-01 13:31] VITALS: BP 120/66
[2020-09-01] MEDS: ENOXAPARIN 40 MG/0.4 ML SQ SCH (15:30)
[2020-09-01] MEDS ORDERED: POTASSIUM CHLORIDE 20 MEQ TAB.ER.PRT ONE (16:01)
[2020-09-01] MEDS: CEFTRIAXONE PMX 2GM/50ML 50 ML IVPB SCH (16:05)
[2020-09-01] MEDS: NICOTINE 21 MG/24 HR PATCH.TD24 TD SCH (16:05)
[2020-09-01] MEDS: NICOTINE 14MG/24 HR PATCH.TD24 TD SCH (16:07)
[2020-09-01 18:44] VITALS: BP 145/71
[2020-09-02 00:30] VITALS: BP 143/80
[2020-09-02] MEDS: METOCLOPRAMIDE 5 MG/ML, 2ML IVPush SCH ×3 (06:19→18:13)
[2020-09-02 07:54] LABS: MEAN PLATELET VOLUME 7.6 fL (7.4-10.4)
[2020-09-02 07:56] LABS: MEAN CORPUSCULAR HEMOGLOBIN 35.5 pg (27.5-34.5); PLATELET COUNT 406 x10^3/uL (130-400); RED BLOOD COUNT 2.18 x10^6/uL (4.38-5.82); RED CELL DISTRIBUTION WIDTH 26.2 % (9.4-14.8)
[2020-09-02 08:00] VITALS: BP 147/95
[2020-09-02 08:04] LABS: ANION GAP 5 mmol/L (5-15); CALCIUM 8.2 mg/dL (8.5-10.1); CHLORIDE 108 mmol/L (98-107)
[2020-09-02 08:05] LABS: CREATININE 0.56 mg/dL (0.7-1.3)
[2020-09-02 09:05] LABS: MD YES
[2020-09-02 09:11] LABS: EOS#(MANUAL) 0.17 x10^3/uL (0.0-0.4); EOS% (MANUAL) 1 % (1-7); LYMPH#(MANUAL) 4.79 x10^3/uL (1-3.4); LYMPHS% (MANUAL) 28 % (22-44); MONOS#(MANUAL) 2.57 x10^3/uL (0.3-2.7); MONOS% (MANUAL) 15 % (2-9); SEG#(MANUAL) 9.58 x10^3/uL (1.8-6.8); SEGS% (MANUAL) 56 % (42-75)
[2020-09-02 09:12] LABS: ANISOCYTOSIS 1+; POLYCHROMASIA 2+
[2020-09-02 09:13] LABS: <PLATELET ESTIMATE> INCREASED; <PLT MORPHOLOGY> NORMAL PLT MORPH; SICKLE CELLS 2+; TARGET CELLS 1+
[2020-09-02] MEDS ORDERED: POTASSIUM CHLORIDE 20 MEQ TAB.ER.PRT ONE (09:26)
[2020-09-02] MEDS: SENNA/DOCUSATE TABLET PO SCH (09:31)
[2020-09-02] MEDS: LACTATED RINGERS 1,000 ML IV SCH (09:39)
[2020-09-02] MEDS ORDERED: POTASSIUM CHLORIDE 20 MEQ TAB.ER.PRT PO SCH (10:00)
[2020-09-02] MEDS: ALBUTEROL HFA 90 MCG/SPRAY INH SCH ×3 (10:15→21:00)
[2020-09-02 12:09] VITALS: BP 120/67
[2020-09-02] MEDS ORDERED: FUROSEMIDE 20 MG/2 ML IV ONE (14:00)
[2020-09-02] MEDS: NICOTINE 21 MG/24 HR PATCH.TD24 TD SCH (15:24)
[2020-09-02] MEDS: ENOXAPARIN 40 MG/0.4 ML SQ SCH (15:25)
[2020-09-02] MEDS: CEFTRIAXONE PMX 2GM/50ML 50 ML IVPB SCH (15:25)
[2020-09-02] MEDS: POTASSIUM CHLORIDE 20 MEQ TAB.ER.PRT PO SCH (17:44)
[2020-09-02 20:00] VITALS: BP 133/69
[2020-09-02 21:02] VITALS: BP 126/81
[2020-09-03] MEDS: METOCLOPRAMIDE 5 MG/ML, 2ML IVPush SCH ×3 (00:30→11:13)
[2020-09-03 01:16] VITALS: BP 120/81
[2020-09-03 06:17] LABS: MEAN CORPUSCULAR HEMOGLOBIN 35.7 pg (27.5-34.5); MEAN CORPUSCULAR HGB CONC 35.3 g/dL (33.2-36.2); MEAN PLATELET VOLUME 7.9 fL (7.4-10.4); PLATELET COUNT 392 x10^3/uL (130-400); RED BLOOD COUNT 2.16 x10^6/uL (4.38-5.82); RED CELL DISTRIBUTION WIDTH 27.9 % (9.4-14.8)
[2020-09-03 06:30] LABS: ANION GAP 6 mmol/L (5-15); CALCIUM 8.4 mg/dL (8.5-10.1); CHLORIDE 107 mmol/L (98-107); CREATININE 0.58 mg/dL (0.7-1.3)
[2020-09-03 06:46] LABS: MD YES
[2020-09-03 06:48] LABS: ANISOCYTOSIS 1+; BAND#(MANUAL) 0.14 x10^3/uL; BANDS%(MANUAL) 1 % (0-7); BASOS#(MANUAL) 0.14 x10^3/uL (0-0.1); BASOS% (MANUAL) 1 % (0-1); EOS#(MANUAL) 0.28 x10^3/uL (0.0-0.4); EOS% (MANUAL) 2 % (1-7); LYMPHS% (MANUAL) 30 % (22-44); MONOS#(MANUAL) 1.26 x10^3/uL (0.3-2.7); MONOS% (MANUAL) 9 % (2-9); POLYCHROMASIA 2+; SEG#(MANUAL) 7.98 x10^3/uL (1.8-6.8); SEGS% (MANUAL) 57 % (42-75); SICKLE CELLS 2+; TARGET CELLS 1+; TEAR DROPS 1+
[2020-09-03 06:50] LABS: <PLATELET ESTIMATE> INCREASED; <PLT MORPHOLOGY> NORMAL PLT MORPH
[2020-09-03 07:24] VITALS: BP 133/81
[2020-09-03] MEDS: SENNA/DOCUSATE TABLET PO SCH (08:25)
[2020-09-03] MEDS: POTASSIUM CHLORIDE 20 MEQ TAB.ER.PRT PO SCH (08:25)
[2020-09-03] MEDS: ALBUTEROL HFA 90 MCG/SPRAY INH SCH (08:26)
[2020-09-03] MEDS ORDERED: AMOXICILLIN 500 MG CAPSULE PO SCH (09:00)
[2020-09-03] MEDS ORDERED: DOXYCYCLINE 100MG CAP PO SCH (09:00)
[2020-09-03] MEDS ORDERED: ALBU18HF INH (11:34)
== END 2020-09-03 13:15 | disposition home or self-care (01) | DRG 811 ==
LOC: ED 12:20 → 2N 14:31 → EDIP 08-27 09:22 → 4WST 08-29 05:25
PROVIDERS: ADMIT Hospitalist; ATTEND Internal Medicine
PROC: 30233N1 Transfusion of Nonautologous Red Blood Cells into Peripheral Vein, Percutaneous Approach (ICD-10-PCS; principal; 2020-08-28)
DX: D57.00 Hb-SS disease with crisis, unspecified (principal); J15.9 Unspecified bacterial pneumonia; J96.01 Acute respiratory failure with hypoxia; J45.41 Moderate persistent asthma with (acute) exacerbation; J98.11 Atelectasis; E11.9 Type 2 diabetes mellitus without complications; E87.6 Hypokalemia; D72.829 Elevated white blood cell count, unspecified; F17.200 Nicotine dependence, unspecified, uncomplicated; I10 Essential (primary) hypertension; Z20.828 Contact with and (suspected) exposure to other viral communicable diseases; V47.5XXA Car driver injured in collision with fixed or stationary object in traffic accident, initial encounter; Y92.410 Unspecified street and highway as the place of occurrence of the external cause; Z99.81 Dependence on supplemental oxygen; Z90.49 Acquired absence of other specified parts of digestive tract; Z88.5 Allergy status to narcotic agent; Z83.6 Family history of other diseases of the respiratory system; Z80.0 Family history of malignant neoplasm of digestive organs
CPT/HCPCS: 36415; 71045; 71046; 71250; 80048; 80053; 82607; 83540; 83550; 83605; 83880; 84145; 84484; 85014; 85018; 85025; 85045; 85379; 85610; 86140; 86850; 86900; 86902; 86923; 87040; 87081; 87635; 93005; 94640; 99285; G0378; J0456; J0696; J1100; J1170; J1650; J1885; J2405; Q0162; J1200; J1940; J2765; J7030; J7050; J7120; P9016

== ENCOUNTER 2021-06-08 16:21 | Emergency (ER) | payer MEDICAID ==
[~2021-06-08] VITALS: Ht 180.3 cm; Wt 74.0 kg
[~2021-06-08 16:21] MED LIST changes: +ALBU18HF INH; -NICO-487 TD; +NICO-587 TD
[2021-06-08 16:47] VITALS: BP 121/67
[2021-06-08] MEDS ORDERED: SODIUM CHLORIDE 0.9% 1,000ML IVBOLUS ONE (17:30)
[2021-06-08] MEDS ORDERED: HYDROmorphone 1 MG/ML, 1ML INJ IV ONE ×2 (17:30→20:30)
[2021-06-08] MEDS ORDERED: KETOROLAC 30 MG/1 ML IVPush ONE (17:30)
[2021-06-08] MEDS ORDERED: KETOROLAC 30 MG/1 ML ONE (17:57)
[2021-06-08] MEDS ORDERED: HYDROmorphone 2 MG/ML, 1ML ONE ×2 (17:58→20:30)
[2021-06-08 18:05] LABS: ANION GAP 11 mmol/L (5-15); CALCIUM 9.1 mg/dL (8.5-10.1); CHLORIDE 108 mmol/L (98-107); CREATININE 0.74 mg/dL (0.7-1.3)
[2021-06-08 19:33] LABS: MEAN CORPUSCULAR HEMOGLOBIN 38.3 pg (27.5-34.5); MEAN CORPUSCULAR HGB CONC 35.9 g/dL (33.2-36.2); MEAN PLATELET VOLUME 7.3 fL (7.4-10.4); PLATELET COUNT 497 x10^3/uL (130-400); RED BLOOD COUNT 2.47 x10^6/uL (4.38-5.82); RED CELL DISTRIBUTION WIDTH 23.8 % (9.4-14.8); RETICULOCYTE COUNT % 19.04 % (0.5-1.5)
[2021-06-08 20:19] LABS: BAND#(MANUAL) 0.17 x10^3/uL; BANDS%(MANUAL) 1 % (0-7); BASOS#(MANUAL) 0.17 x10^3/uL (0-0.1); BASOS% (MANUAL) 1 % (0-1); EOS#(MANUAL) 2.18 x10^3/uL (0.0-0.4); EOS% (MANUAL) 13 % (1-7); LYMPH#(MANUAL) 3.86 x10^3/uL (1-3.4); LYMPHS% (MANUAL) 23 % (22-44); METAMYELOCYTES# (MANUAL) 0.34 x10^3/uL (0-0); METAMYELOCYTES% (MANUAL) 2 % (0-1); MONOS#(MANUAL) 1.68 x10^3/uL (0.3-2.7); MONOS% (MANUAL) 10 % (2-9); SEGS% (MANUAL) 50 % (42-75)
[2021-06-08 20:20] LABS: <PLATELET ESTIMATE> INCREASED; <PLT MORPHOLOGY> NORMAL PLT MORPH
[2021-06-08 20:21] LABS: ANISOCYTOSIS 1+; POLYCHROMASIA 2+; SICKLE CELLS 2+; TARGET CELLS 1+; TEAR DROPS 1+
[2021-06-08 20:24] LABS: HYPOCHROMIA 1+
== END 2021-06-08 21:22 | disposition home or self-care (01) ==
LOC: ED 18:20
DX: D57.00 Hb-SS disease with crisis, unspecified (principal); F17.210 Nicotine dependence, cigarettes, uncomplicated; I10 Essential (primary) hypertension; E11.9 Type 2 diabetes mellitus without complications
CPT/HCPCS: 36415; 71045; 80048; 82040; 83615; 85025; 85045; 96361; 96374; 96375; 96376; 99284; 99406; J1170; J1885; J7030